=== PATIENT | male | born 1955 | race Hispanic/Latino ===

== ENCOUNTER 2018-07-21 07:10 | Inpatient (IN) | payer MEDICAID ==
--- NOTE | 2018-07-21 07:31 | ED PDOC ---
Arrival/HPI - General Historian: Patient - History of Present Illness Time/Duration: 1 week Symptom Onset: Gradual Symptom Course: Worsening Quality: Other (swelling/sob) - General Chief Complaint: Male Genitourinary Time Seen by Provider: 07/21/18 07:12 - History of Present Illness Narrative History of Present Illness (Text): 07/21/18 07:29 Patient is a 62 year old male with a past medical history that includes CHF and afib (supposed to be on Eliquis) presenting to the emergency room with a complaint of worsening shortness of breath, b/l leg swelling and scrotal swelling for 1 week. Patient is a poor historian and does not know much about his medical history. He reports being hospitalized for similar symptoms twice this year, January and May. During his May hospitalization he had a cardiac device implanted (believed to AICD). He states he has been taking his medication but his symptoms are still worsening. He noticed his feet started to swell last week. The swelling has increased up his legs and now includes his scrotum. He decided to come to the hospital after he notice his breathing we as becoming more difficulty. He has been feeling more fatigued lately, even though he reports sleeping at least 8 hours every night. He denies orthopnea, stating that he sleeps sitting up on benches because he is homeless. He has no other complaints at this time. Denies fevers, chills, nausea, vomiting, diarrhea, constipation, chest pain, abdominal pain, palpitations, lightheadedness, dizziness, numbness or tingling. Medical history obtained from phone call with [facility]. 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 Discharged from [facility] on May - CHF and Cellulitis reported EF ~ 20% 07/21/18 07:58 (Konrad Lennon) Past Medical History - Provider Review Nursing Documentation Reviewed: Yes - Infectious Disease Hx of Infectious Diseases: None Family/Social History - Physician Review Nursing Documentation Reviewed: Yes Family/Social History: Unknown Family HX Smoking Status: Never Smoked Hx Alcohol Use: No Hx Substance Use: No Allergies/Home Meds Allergies/Adverse Reactions: Allergies No Known Allergies Allergy (Verified 07/21/18 07:12) Review of Systems - Physician Review All systems were reviewed & negative as marked: Yes - Review of Systems Constitutional: absent: Fatigue, Fevers Eyes: Normal. absent: Vision Changes ENT: Normal. absent: Sore Throat Respiratory: SOB. absent: Cough, Sputum, Wheezing Cardiovascular: MAGAÑA. absent: Chest Pain, Palpitations, Calf Pain Gastrointestinal: Normal. absent: Abdominal Pain, Constipation, Diarrhea, Nausea, Vomiting Genitourinary Male: Normal, Frequency (on lasix). absent: Dysuria, Hematuria Musculoskeletal: Normal Skin: Normal. absent: Rash Neurological: Normal. absent: Headache, Dizziness Endocrine: Normal. absent: Diaphoresis Hemo/Lymphatic: Normal Psychiatric: Normal. absent: Anxiety Physical Exam Vital Signs Reviewed: Yes Temperature: Afebrile Blood Pressure: Normal Pulse: Tachycardic Respiratory Rate: Normal Appearance: Positive for: Non-Toxic, Comfortable, Ill-Appearing (chronically ill appearing), Unkept, Other (obese ) Pain Distress: None Mental Status: Positive for: Alert and Oriented X 3 - Systems Exam Head: Present: Atraumatic, Other (Large cyst on side of left side) Extroacular Muscles: Present: EOMI Conjunctiva: Present: Normal Mouth: Present: Moist Mucous Membranes Nose (External): Present: Atraumatic Nose (Internal): Present: Normal Inspection, No Active Bleeding, Moist Neck: Present: Normal Range of Motion, JVD. No: Meningeal Signs, MIDLINE TENDERNESS, Lymphadenopathy Respiratory/Chest: Present: Clear to Auscultation, Good Air Exchange. No: Respiratory Distress, Accessory Muscle Use, Wheezes (mild), Decreased Breath Sounds, Rales, Retracting, Rhonchi, Tachypneic Cardiovascular: Present: Normal S1, S2. No: Regular Rate and Rhythm ( irregularly irregular ), Murmurs Abdomen: No: Tenderness, Distention, Peritoneal Signs, Rebound, Guarding, McBurney's Point Tender, Rovsing's Sign Present Genitourinary Male: Present: Penile Swelling, Other (Scrotal swelling ). No: Normal External Genitalia, Erythema, Testicle Swelling Upper Extremity: Present: Normal Inspection, NORMAL PULSES. No: Cyanosis, Edema Lower Extremity: Present: Edema (3+ pitting edema b/l ), Erythema (chornic cellulitis on right lower extremity ), Neurovascularly Intact, Capillary Refill < 2 s. No: Normal Inspection, CALF TENDERNESS, Tenderness Neurological: Present: GCS=15, Speech Normal, Motor Func Grossly Intact Skin: Present: Warm, Dry, Normal Color. No: Rashes Lymphatic: No: Cervical Adenopathy Psychiatric: Present: Alert, Oriented x 3, Normal Insight, Normal Concentration Vital Signs Temp Pulse Resp BP Pulse Ox 07/21/18 10:05 118/83 07/21/18 09:24 88 24 123/80 07/21/18 08:32 93 H 133/84 07/21/18 08:01 116/89 07/21/18 07:17 97.9 F 111 H 18 136/74 95 07/21/18 07:13 97.9 F 111 H 18 95 Medical Decision Making - Lab Interpretations I have reviewed the lab results: Yes Interpretation: Abnormal lab values - RAD Interpretation J2Ee Developer: ED Physician - EKG Interpretation Interpreted by ED Physician: Yes Type: 12 lead EKG Comparison: No previous EKG avail. ED Course and Treatment: 07/21/18 08:03 Patient is a 62 year old male with a past medical history of CHF, who clinically appears fluid overloaded. Appears to be in acute on chronic CHF exacerbation Labs EKG CXR Lasix 40mg IVP Dr. Jin called and obtained past medical history from [facility] emergency department. 07/21/18 08:36 CXR shows RLL infiltrate and enlarged heart. Tx with Rocephin and Azithro. No leukocytosis, elevated pro-BNP Dr. Jin called and discussed case with Dr. Lombardi, who accepted patient to Hospitalist service, for full inpatient admission to telemetry. (Konrad Lennon) 07/21/18 08:31 62 yo male with leg swelling, scrotal swelling and sob r/o CHF exacerbation In agreement with resident note, which includes further HPI details. Patient was seen and evaluated with resident, came up with plan and treatment together. Lungs: expiratory wheezing; no crackles. no tachypnea. Legs: +3 pitting edema Scotal edema EKG reviewed. Afib and documented by resident. CXR with Right infiltrate. Enlarged heart. Will tx with Abx. Lasix IV. Discussed case with Dr. Lombardi who will place the patient on telemetry obs. (Erik Jin) - Lab Interpretations Lab Results: 07/21/18 07:50 07/21/18 07:50 Lab Results 07/21/18 09:00: NT-Pro-B Natriuret Pep 6420 H 07/21/18 07:50: PT 17.3 H, INR 1.49, APTT 30.5 07/21/18 07:50: WBC 7.4, RBC 5.29, Hgb 14.9, Hct 45.9, MCV 86.8, MCH 28.2, MCHC 32.5, RDW 17.1 H, Plt Count 185, MPV 10.0, Gran % 74.2 H, Lymph % (Auto) 13.3 L , Simpson % (Auto) 11.2 H, Eos % (Auto) 1.0 L, Baso % (Auto) 0.3, Gran # 5.46, Lymph # (Auto) 1.0 L, Simpson # (Auto) 0.8 H, Eos # (Auto) 0.1, Baso # (Auto) 0.02 07/21/18 07:50: Sodium 140, Potassium 3.7, Chloride 107, Carbon Dioxide 23, Anion Gap 13, BUN 27 H, Creatinine 0.9, Est GFR ( Amer) > 60, Est GFR ( Non-Af Amer) > 60, Random Glucose 128 H, Calcium 8.7, Magnesium 1.8, Total Bilirubin 2.6 H, AST 39, ALT 35, Alkaline Phosphatase 199 H, Troponin I 0.03, NT -Pro-B Natriuret Pep 6470 H, Total Protein 6.6, Albumin 3.2, Globulin 3.4, Albumin/Globulin Ratio 1.0 L - RAD Interpretation Narrative RAD Interpretations (Text): 07/21/18 08:08 CXR - RLL infiltrate seen, no pleural effusions noted. (Konrad Lennon) Radiology Orders: 07/21/18 07:37 CHEST PORTABLE [RAD] Stat - EKG Interpretation EKG Interpretation (Text): 07/21/18 08:08 EKG - afib @ 92bpms, left axis deviation, Q waves in leads V2-V4 - no previous EKG for comparison. Per hx obtained by Dr. Jin on phone call with [facility], patient has a known history of afib. (Konrad Lennon) - Medication Orders Current Medication Orders: Furosemide (Lasix) 40 mg IVP Q12 KRISTOPHER Last Admin: 07/21/18 10:05 Dose: 40 mg MAR Blood Pressure Document 07/21/18 10:05 (Rec: 07/21/18 10:06 [id number] Blood Pressure Blood Pressure (100/60-150/90) 118/83 IVP Administration Document 07/21/18 10:05 (Rec: 07/21/18 10:06 [id number]) Charges for Administration # of IVP Administrations 1 Heparin Sodium/Sodium Chloride (Heparin 91769 Units/250ml 1/2 Normal Saline) 25 ,000 units in 250 mls @ 17.064 mls/hr IV .[id number] PRN; Protocol; 18 UNITS/KG/HR PRN Reason: ADJUST RATE PER PROTOCOL Pantoprazole Sodium (Protonix Inj) 40 mg IVP DAILY KRISTOPHER Discontinued Medications Furosemide (Lasix) 40 mg IVP STAT STA Stop: 07/21/18 07:40 Last Admin: 07/21/18 08:01 Dose: 40 mg MAR Blood Pressure Document 07/21/18 08:01 (Rec: 07/21/18 08:01 [id number]) Blood Pressure Blood Pressure (100/60-150/90) 116/89 IVP Administration Document 07/21/18 08:01 (Rec: 07/21/18 08:01 [facility] [id number]) Charges for Administration # of IVP Administrations 1 Heparin Sodium (Porcine) (Heparin) 4,000 units IV ONCE ONE PRN Reason: Protocol Stop: 07/21/18 09:28 Ceftriaxone Sodium (Rocephin 1 Gram Ivpb) 1 gm in 100 mls @ 100 mls/hr IVPB STAT STA PRN Reason: Protocol Stop: 07/21/18 09:30 Last Admin: 07/21/18 10:07 Dose: 100 mls/hr eMAR Start Stop Document 07/21/18 10:07 (Rec: 07/21/18 10:07 [facility] [id number]) Intravenous Solution Start Date 07/21/18 Start Time 10:07 Azithromycin (Zithromax 500mg In Ns) 500 mg in 250 mls @ 167 mls/hr IVPB STAT STA PRN Reason: Protocol Stop: 07/21/18 10:00 Disposition/Present on Arrival - Present on Arrival Any Indicators Present on Arrival: No History of DVT/PE: No History of Uncontrolled Diabetes: No Urinary Catheter: No History of Decub. Ulcer: No History Surgical Site Infection Following: None - Disposition Have Diagnosis and Disposition been Completed?: Yes Disposition Time: 08:30 Patient Plan: Admission, Telemetry - Disposition Diagnosis: Acute exacerbation of congestive heart failure Disposition: HOSPITALIZED Patient Problems: Current Active Problems Problem Status Onset Acute exacerbation of congestive heart failure Acute Condition: GUARDED
[2018-07-21 08:06] LABS: BASO # 0.02 K/mm3 (0.0-2.0); BASO % 0.3 % (0.0-3.0); EOS # 0.1 (0.0-0.7); GRAN # 5.46 (1.4-6.5); GRAN % 74.2 % (50.0-68.0); HEMOGLOBIN 14.9 g/dL (14.0-18.0); LYMPH % 13.3 % (22.0-35.0); MEAN CELL VOLUME 86.8 fl (80.0-105.0); MEAN CORPUSCULAR HEMOGLOBIN 28.2 pg (25.0-35.0); MEAN CORPUSCULAR HGB CONC 32.5 g/dl (31.0-37.0); MONO # 0.8 (0.1-0.6); MONO % 11.2 % (1.0-6.0); RBC 5.29 10^6/uL (3.5-6.1); RED CELL DISTRIBUTION WIDTH 17.1 % (11.5-14.5); WHITE BLOOD COUNT 7.4 10^3/ul (4.5-11.0)
[2018-07-21 08:17] LABS: ALBUMIN 3.2 g/dL (3.0-4.8); ALT/SGPT 35 U/L (7-56); AST/SGOT 39 U/L (17-59); BLOOD UREA NITROGEN 27 mg/dL (7-21); CALCIUM 8.7 mg/dL (8.4-10.5); GFR NON-AFRICAN AMERICAN > 60
[2018-07-21 08:27] LABS: B-TYPE NATRIURETIC PEPTIDE 6470 pg/mL (0-450); INR 1.49; PARTIAL THROMBOPLASTIN TIME 30.5 Seconds (25.1-36.5); PROTHROMBIN TIME 17.3 SECONDS (9.4-12.5); TROPONIN I 0.03 ng/mL
[2018-07-21] MEDS ORDERED: Azithromycin 500MG/NS 250ml 500 MG/250 ML BAG IVPB STA (08:31)
[2018-07-21] MEDS ORDERED: cefTRIAXone 1 gm 1 GM/100 ML BAG IVPB STA (08:31)
[2018-07-21] MEDS ORDERED: Heparin25000 units/250ml 1/2NS 25,000 UNITS/250 ML BAG IV PRN (09:27)
--- NOTE | 2018-07-21 09:30 | RAD ---
Date of service: 07/21/2018 HISTORY: chf COMPARISON: No prior. FINDINGS: LUNGS: There is a right-sided perihilar infiltrate suspicious for pneumonia. There is also a component of vascular congestion PLEURA: No significant pleural effusion identified, no pneumothorax apparent. CARDIOVASCULAR: Moderate cardiomegaly OSSEOUS STRUCTURES: No significant abnormalities. VISUALIZED UPPER ABDOMEN: Normal. OTHER FINDINGS: None. IMPRESSION: There is a right-sided perihilar infiltrate suspicious for pneumonia. There is also a component of vascular congestion
[2018-07-21 11:36] VITALS: BMI 40.8
[2018-07-21] MEDS ORDERED: AMPicillin/Sulbactam 1.5gm 1 GM/100 ML BAG IVPB ONE (11:43)
[2018-07-21] MEDS ORDERED: Vancomycin 1gm in NS 250ml 1 GM/250 ML BAG IVPB SCH (11:45)
--- NOTE | 2018-07-21 13:51 | CARD ---
APPROVED REPORT Date of service: 07/21/2018 EKG Measurement Heart [id number] <Conclusion> Atrial fibrillation Right superior axis deviation Anteroseptal infarct, age undetermined Abnormal ECG
[2018-07-21] MEDS ORDERED: Pneumococcal 23-Valent Vaccine IM ONE (14:34)
--- NOTE | 2018-07-21 16:33 | CP.PCM.HP ---
<VelasquezShawn - Last Filed: 07/21/18 16:39> History of Present Illness - History of Present Illness History of Present Illness: Medicine H&P: Velasquez, PGY - 2, IM Resident Chief Complaint: Shortness of breath HPI: 62 year old male with pertinent medical history of A-Fib on Eliquis and Systolic HF presents with 4 day history of shortness of breath. Patient was recently [place] [facility] [place] and generally goes there for medical treatment. He also complains of scrotal swelling as well as bilateral LE swelling. He denies any chest pain or fatigue, states that at his baseline he is able to walk around several blocks. He is homeless. Does not recall having a recent ECHO, but per [facility] [place] has been seen there multiple times. He states that he had an AICD placed in May but does not know why. Denies any urinary symptoms or any calf pain in bilateral LE. Surgical Hx: AICD placement Medical Hx: CHF, Systolic CHF Allergies: NKDA Social Hx: Never smoker, No illicits; Quit drinking 25 years ago Home Meds: Reviewed, as per MAR Family Hx: Patient denies PMD: Patient does not have one Present on Admission - Present on Admission Any Indicators Present on Admission: No Past Patient History - Infectious Disease Hx of Infectious Diseases: None - Past Social History Smoking Status: Never Smoked - CARDIAC Hx Cardiac Disorders: Yes Hx Cardia Arrhythmia: Yes (a fib) Hx Congestive Heart Failure: Yes Hx Hypercholesterolemia: Yes Hx Hypertension: Yes Hx Internal Defibrillator: Yes (05/20/18 at [facility] [place], pt states defibrillator) Hx Peripheral Edema: Yes (ble +3 pitting) Other/Comment: pt obtained meds from [facility] pharmacy [phone] january 2018 upon discharge from hospital for chf. Pt stated" I got 30 day supplies, and ran out. " Was discharged on 05/21/18 after have a "defibrillator" implanted at [facility], [facility] denies giving him any home meds at that time. 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", chronic cellulitis ble redness to skin, skin discolorations, multiple open draining and closed wounds +3 pitting edema legs and feet, long thick hard toenails, poor hygeine foul smell and dirty finger and toenails, small 0.5 round cyst left uppr back flesh colored, left chest wall staple dry and intact for defibrillator insertion in may 2018, redness to lower abd, redness and swelling to penis and scrotum, redness travels around to buttocks, small 0.5cm round growth to right eyelid - MUSCULOSKELETAL/RHEUMATOLOGICAL Hx Musculoskeletal Disorders: No Hx Falls: No - GASTROINTESTINAL Hx Gastrointestinal Disorders: Yes (obese) Hx Gastroesophageal Reflux: Yes - GENITOURINARY/GYNECOLOGICAL Hx Genitourinary Disorders: No - PSYCHIATRIC Hx Psychophysiologic Disorder: No Hx Substance Use: No - SURGICAL HISTORY Hx Surgeries: Yes Hx Cardiac Catheterization: Yes (pt thinks he had c cath 01/2018 [facility]) Other/Comment: defibrillator implantion 05/20/18 [facility], questionable cardiac cath at [facility] 01/2018 as stated by pt who is uncertain Meds Allergies/Adverse Reactions: Allergies Allergy/AdvReac Type Severity Reaction Status Date / Time No Known Allergies Allergy Verified 07/21/18 07:12 Physical Exam - Constitutional Appears: Non-toxic, Unkempt - Head Exam Head Exam: ATRAUMATIC, NORMAL INSPECTION, NORMOCEPHALIC Additional comments: Patient has large cyst on left side of his head; states that it has been worked up in the past, and that it is non-malignant - Eye Exam Eye Exam: EOMI, Normal appearance, PERRL Pupil Exam: NORMAL ACCOMODATION, PERRL - ENT Exam ENT Exam: Mucous Membranes Moist, Normal Exam - Neck Exam Neck exam: Positive for: Normal Inspection - Respiratory Exam Respiratory Exam: Wheezes, NORMAL BREATHING PATTERN Additional comments: wheezes in bilateral anterior lung sanches - Cardiovascular Exam Cardiovascular Exam: REGULAR RHYTHM - GI/Abdominal Exam GI & Abdominal Exam: Normal Bowel Sounds, Soft. absent: Tenderness - Extremities Exam Extremities exam: Positive for: pedal edema Additional comments: 4+ pitting edema on bilateral LE Patient has pustular discharge from different places along his bilateral LE - Back Exam Back exam: NORMAL INSPECTION - Neurological Exam Neurological exam: Alert, CN II-XII Intact, Normal Gait, Oriented x3, Reflexes Normal - Psychiatric Exam Psychiatric exam: Normal Affect, Normal Mood - Skin Skin Exam: Dry, Intact, Normal Color, Warm Results - Vital Signs Recent Vital Signs: Last Vital Signs Temp 97.9 F 07/21/18 13:24 Pulse 88 07/21/18 13:24 Resp 24 07/21/18 13:24 BP 123/80 07/21/18 13:24 Pulse Ox 96 07/21/18 12:32 - Labs Result Diagrams: 07/21/18 07:50 07/21/18 07:50 Assessment & Plan - Assessment and Plan (Free Text) Assessment: 62 year old male presenting for shortness of breath of 4 day duration. Patient has had several episodes like this in the past, and has been evaluated at [facility]. Upon admission, BNP is elevated even with age adjustment (>6200), and CXR reveals bilateral patchy opacities reflective of fluid. Patient also has clinical signs of CHF exacerbation, including 4+ bilateral pitting edema. Initial trope was indeterminate, as was the second. No baseline ECHO is on record here at [facility]. Of note patient also has bilateral LE pustular discharge from multiple points but is afebrile and without leukocytosis. Patient's EKG reveals atrial fibrillation with possible previous infarct. Given this information, patient most likely is having CHF exacerbation, possibly 2/2 atrial fibrillation or bilateral LE cellulitis. There is no clinical suspicion right now for PE or DVT, as patient is oxygenating well on 2L NC. Even though patient is short of breath and with tachycardia on presentation, there is an alternative reason for these symptoms. Note: CHADSVASc score is 2 Plan Shortness of breath, likely 2/2 CHF Exacerbation - Admit to tele - Lasix 40 BID, 2L NC PRN - D/C Azithro and Rocephin given in ED - Daily weights and Strict I/O's - Continue with home CHF medications - Coreg, ASA, Lipitor, Plavix - BNP ordered for 07/24 to track progress of treatment, as per TIME-CHF trial Possible bilateral LE Cellulitis - Wound culture sent - Luis Daniel for now Hx A Fib - Continue home Eliquis, Coreg - Admit to telemetry GI/DVT PPX - Protonix/Eliquis <Ashia Mendez - Last Filed: 07/25/18 18:52> Results - Vital Signs Recent Vital Signs: Last Vital Signs Temp 97.2 F L 07/25/18 12:00 Pulse 60 07/25/18 18:00 Resp 17 07/25/18 12:00 BP 116/77 07/25/18 17:23 Pulse Ox 94 L 07/25/18 06:00 - Labs Result Diagrams: 07/25/18 07:00 07/25/18 07:00 Labs: Laboratory Results - last 24 hr 07/25/18 07/25/18 07:00 07:00 WBC 5.0 RBC 5.13 Hgb 14.2 Hct 45.0 MCV 87.7 MCH 27.7 MCHC 31.6 RDW 16.7 H Plt Count 166 MPV 10.0 Gran % 60.1 Lymph % (Auto) 25.5 Maverick % (Auto) 10.8 H Eos % (Auto) 3.0 Baso % (Auto) 0.6 Gran # 3.02 Lymph # (Auto) 1.3 Maverick # (Auto) 0.5 Eos # (Auto) 0.2 Baso # (Auto) 0.03 Sodium 138 Potassium 4.2 Chloride 97 L Carbon Dioxide 33 Anion Gap 12 BUN 18 Creatinine 0.9 Est GFR ( Amer) > 60 Est GFR (Non-Af Amer) > 60 Random Glucose 80 Calcium 8.7 Phosphorus 3.4 Magnesium 2.0 Total Bilirubin 2.0 H AST 45 ALT 33 Alkaline Phosphatase 210 H Total Protein 6.1 Albumin 3.0 Globulin 3.1 Albumin/Globulin Ratio 1.0 L Attending/Attestation - Attestation I have personally seen and examined this patient.: Yes I have fully participated in the care of the patient.: Yes I have reviewed all pertinent clinical information: Yes Notes (Text): 07/25/18 18:50 Medical record note made by the resident after discussion with my direction and input after the patient was personally seen and examined by me. I have reviewed the chart and agree that the record accurately reflects by personal performance of the history, physical exam, data review, and medical decision-making, in the course for the patient. I have also personally directed the plan of care. 62 year old male with PMH of CAD s/p stents ? , CHF with systolic dysfunction EF 19%,SP AICD,, A-Fib on Eliquis , non compliance with medication was admitted with acute on chronic CHF exacerbation,(worsening dyspnea, leg swelling and scrotal swelling), We will start patient on IV lasix, we will follow up BUN/Creatinin and electrolyte. We will get 2D Echo,We will also get Cardiology consult.
--- NOTE | 2018-07-21 17:10 | CARD ---
APPROVED REPORT Date of service: 07/21/2018 EXAM: Two-dimensional and M-mode echocardiogram with Doppler and color Doppler. INDICATION CHF WITH LOW EF 2D DIMENSIONS RVDd4.6 (2.9-3.5cm)Left Atrium (2D)6.3 (1.6-4.0cm) IVSd1.2 (0.7-1.1cm)LVDd6.3 (3.9-5.9cm) PWd1.5 (0.7-1.1cm)LVDs5.7 (2.5-4.0cm) FS (%) 8.2 %LVEF (%)17.7 (>50%) M-Mode DIMENSIONS Aortic Root3.70 (2.2-3.7cm)Aortic Cusp Exc.2.30 (1.5-2.0cm) Aortic Valve AoV Peak Nohfsuwk407.0cm/Sandra Peak GR.6mmHg Mitral Valve E/A ratio0.0 TDI E/Lateral E'0.0E/Medial E'0.0 Pulmonary Valve PV Peak Oruuxkbf99.8cm/sPV Peak Grad.1mmHg Tricuspid Valve TR Peak [id number]/sRAP [id number] Peak Gr.42mmHg [id number] LEFT VENTRICLE The Left Ventricle is moderately dilated. There is normal left ventricular wall thickness. The systolic function is severely impaired. There is global hypokinesis of the left ventricle. No left ventricle thrombus noted on this study. RIGHT VENTRICLE The right ventricle is moderately dilated. There is normal right ventricular wall thickness. RV Systolic function is severely reduced. There is a pacemaker lead in the right ventricle. ATRIA The left atrium is severely dilated. The right atrium is severely dilated. AORTIC VALVE The aortic valve is mildly thickened. There is trace aortic regurgitation. There is no aortic valvular stenosis. MITRAL VALVE The mitral valve is mildly thickened. Mitral regurgitation is moderate. There is no mitral valve stenosis. TRICUSPID VALVE The tricuspid valve is normal in structure. There is moderate to severe tricuspid regurgitation. There is moderate pulmonary hypertension. PULMONIC VALVE The pulmonary valve is normal in structure. There is trace pulmonic valvular regurgitation. GREAT VESSELS The IVC is dilated. PERICARDIAL EFFUSION There is a trace circumferential pericardial effusion. <Conclusion> The Left Ventricle is moderately dilated. There is normal left ventricular wall thickness. The systolic function is severely impaired. There is global hypokinesis of the left ventricle. No left ventricle thrombus noted on this study. The right ventricle is moderately dilated. The right ventricle is moderately dilated. RV Systolic function is severely reduced. Mitral regurgitation is moderate. There is moderate to severe tricuspid regurgitation. There is moderate pulmonary hypertension.
[2018-07-22] MEDS: Pantoprazole 40 mg EC Tab PO SCH (06:32)
[2018-07-22 07:23] LABS: BASO # 0.02 K/mm3 (0.0-2.0); BASO % 0.4 % (0.0-3.0); EOS # 0.2 (0.0-0.7); EOS % 2.7 % (1.5-5.0); GRAN # 3.77 (1.4-6.5); GRAN % 67.7 % (50.0-68.0); HEMOGLOBIN 13.6 g/dL (14.0-18.0); LYMPH # 0.9 (1.2-3.4); LYMPH % 15.6 % (22.0-35.0); MEAN CELL VOLUME 87.9 fl (80.0-105.0); MEAN CORPUSCULAR HEMOGLOBIN 27.5 pg (25.0-35.0); MEAN CORPUSCULAR HGB CONC 31.3 g/dl (31.0-37.0); MEAN PLATELET VOLUME 10.2 fl (7.0-11.0); MONO # 0.8 (0.1-0.6); MONO % 13.6 % (1.0-6.0); RBC 4.95 10^6/uL (3.5-6.1); RED CELL DISTRIBUTION WIDTH 17.1 % (11.5-14.5); WHITE BLOOD COUNT 5.6 10^3/ul (4.5-11.0)
[2018-07-22 07:41] LABS: ALB/GLOB RATIO 0.9 (1.1-1.8); ALBUMIN 2.6 g/dL (3.0-4.8); ALT/SGPT 32 U/L (7-56); AST/SGOT 34 U/L (17-59); BLOOD UREA NITROGEN 23 mg/dL (7-21); CALCIUM 8.3 mg/dL (8.4-10.5); GFR NON-AFRICAN AMERICAN > 60; HDL CHOLESTEROL 23 mg/dL (29-60)
[2018-07-22 07:50] LABS: LDL CHOLESTEROL 66 mg/dL (0-129)
[2018-07-22] MEDS ORDERED: Potassium Chloride 40 mEq/30 ml LIQ UD PO STA (09:33)
[2018-07-22] MEDS ORDERED: Magnesium Sulfate 2 gm/50 ml 2 GM/50 ML BAG IVPB ONE (09:38)
[2018-07-22] MEDS ORDERED: Albuterol-Ipratrop 3 mg / 0.5 (3 ml) UD IH STA (10:23)
--- NOTE | 2018-07-22 13:48 | US ---
Date of service: 07/21/2018 HISTORY: Scrotal swelling TECHNIQUE: Realtime sonography through the scrotum with color and doppler flow. COMPARISON: None Available. FINDINGS: RIGHT TESTICLE: Measures 3.7 x 3.2 x 2.14 cm. Normal echotexture and flow. RIGHT EPIDIDYMIS: Epididymal head measures 1.24 x 0.53 x 0.66 cm. 0.2 x 0.1 x 0.2 centimeters cyst seen at the right epididymal head. LEFT TESTICLE: Measures 3.6 x 2.4 cm. Normal echotexture and flow. LEFT EPIDIDYMIS: Epididymal head measures 1.9 x 1 x 1.2 cm. Grossly unremarkable appearance with normal flow. HYDROCELE: Small bilateral hydroceles noted. VARICOCELE: None. OTHER FINDINGS: None. IMPRESSION: No evidence of testicular torsion. Diffuse skin and soft tissue edema and thickening noted. Small bilateral hydroceles.
--- NOTE | 2018-07-22 16:20 | CP.PCM.PN ---
Subjective - Date & Time of Evaluation Date of Evaluation: 07/22/18 Time of Evaluation: 09:08 - Subjective Subjective: Jon Beatty DO PGY-1, Internal Medicine Resident. Hospitalist Progress Note Patient seen and examined at bedside. Patient is resting in bed. No acute events overnight. Tolerating his diet with regular bowel movements. Patient reported improving SOB and leg swelling. Patient denied CP, palpitations, headache, fever. Objective - Vital Signs/Intake and Output Vital Signs (last 24 hours): Temp Pulse Resp BP Pulse Ox 98.6 F 72 18 100/65 97 07/22/18 12:00 07/22/18 12:00 07/22/18 12:00 07/22/18 12:00 07/22/18 06:00 Intake and Output: 07/22/18 07/22/18 06:59 18:59 Intake Total 360 Output Total 4350 Balance -3990 - Medications Medications: Current Medications Apixaban (Eliquis) 5 mg PO BID [facility] PRN Reason: Protocol Last Admin: 07/22/18 10:54 Dose: 5 mg Aspirin (Ecotrin) 81 mg PO DAILY [facility] Last Admin: 07/22/18 10:54 Dose: 81 mg Atorvastatin Calcium (Lipitor) 40 mg PO HS [facility] Last Admin: 07/21/18 21:27 Dose: 40 mg Carvedilol (Coreg) 12.5 mg PO BID [facility] Last Admin: 07/22/18 11:22 Dose: 12.5 mg Cephalexin Monohydrate (Keflex) 500 mg PO Q6 [facility] PRN Reason: Protocol Last Admin: 07/22/18 11:30 Dose: 500 mg Clopidogrel Bisulfate (Plavix) 75 mg PO DAILY [facility] Last Admin: 07/22/18 10:53 Dose: 75 mg Furosemide (Lasix) 40 mg IVP Q12 [facility] Last Admin: 07/22/18 11:23 Dose: 40 mg Lisinopril (Zestril) 5 mg PO DAILY [facility] Last Admin: 07/22/18 11:23 Dose: 5 mg Pantoprazole Sodium (Protonix Ec Tab) 40 mg PO 0600 [facility] Last Admin: 07/22/18 06:32 Dose: 40 mg - Labs Labs: 07/22/18 06:45 07/22/18 06:45 PT 17.3 SECONDS (9.4-12.5) H 07/21/18 07:50 INR 1.49 07/21/18 07:50 APTT 30.5 Seconds (25.1-36.5) 07/21/18 07:50 - Constitutional Appears: Well, No Acute Distress - Head Exam Head Exam: ATRAUMATIC, NORMOCEPHALIC Additional comments: mass anterior to left ear. soft, fluid filled, no signs of infection, no erythema, no drainage - Eye Exam Eye Exam: EOMI, Normal appearance, PERRL Pupil Exam: NORMAL ACCOMODATION, PERRL - ENT Exam ENT Exam: Mucous Membranes Moist, Normal Exam - Neck Exam Neck Exam: Full ROM, Normal Inspection. absent: Lymphadenopathy - Respiratory Exam Respiratory Exam: Clear to Ausculation Bilateral, NORMAL BREATHING PATTERN - Cardiovascular Exam Cardiovascular Exam: +S1, +S2, Murmur - GI/Abdominal Exam GI & Abdominal Exam: Soft, Normal Bowel Sounds. absent: Guarding, Tenderness, Organomegaly, Pulsatile Mass Additional comments: distended abdomen - Exam Additional comments: enlarged scrotum - Extremities Exam Extremities Exam: Full ROM, Pedal Edema. absent: Calf Tenderness Additional comments: b/l 3+ LL pitting edema - Back Exam Back Exam: NORMAL INSPECTION - Neurological Exam Neurological Exam: Alert, Awake, CN II-XII Intact, Oriented x3 - Psychiatric Exam Psychiatric exam: Normal Affect, Normal Mood - Skin Additional comments: b/l LE skin changes. with pustules and dried pus. erythema, dark discoloration Assessment and Plan - Assessment and Plan (Free Text) Assessment: 62 year old male with PMH of CAD s/p stents palced, CABG, A-Fib on Eliquis and Systolic CHF presented to ED for SOB and progressive LE edema x4 days. Admitted to telemetry for observation and CHF exacerbation Plan: Shortness of breath -likely due to CHF exacerbation -EKG: Afib, Rsuperior axis deviation -Troponin negative x3 -CXR: b/l infilterate/fluid -Echo: EF 17.7%, PHTN, global LV hypokinesis, severely reduced RV systolic function -admit to tele -lasix 40 BID -continue home meds coreg, asa, lipitor, plavix -BNP 6470 -continue O2 NC 2L prn -daily weight -fluid restriction, I/O -Testicular U/S: no torsion, soft tissue swelling with hydrocele B/L lower extremities wounds -likely due to chronic venous stasis -wound culture sent -started keflex -wound care Hx A Fib -continue home Abhay Arredondo -admit to telemetry Left facial cystic mass -chronic, for years -no signs of infection, drainage, erythema -followed up at [facility] [place] for elective resection -no treatment needed Prophylaxis GI ppx: Protonix DVTppx: Eliquis Heart healthy diet Case reviewed and plan discussed with Dr Mendez
--- NOTE | 2018-07-23 02:21 | CON ---
DATE: 07/22/2018 REQUESTING PHYSICIAN: MD MANJU Hector FOR CONSULTATION: Decompensated congestive heart failure. HISTORY: This is a 62-year-old man with apparent history of congestive cardiomyopathy, who had previously been admitted to [facility], who presented with worsening dyspnea. Full details of his prior workup are unavailable when seen. He apparently has chronic atrial fibrillation and severe LV systolic dysfunction. An ICD was placed earlier this year at [facility]. He claims compliance with his medication. He states he did undergo cardiac catheterization and was told that he had no blockages in his arteries, although full details of this are unavailable at the present time. He apparently is homeless and was given a 30-day supply of medications in May, after his defibrillator was placed. He has not taken his medication since that time. His past history is notable for problems mentioned above. 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 PAST MEDICAL HISTORY: Notable for the problems mentioned above. SOCIAL HISTORY: He does not smoke. He denies drug use. He quit smoking. He stopped alcohol abuse over 25 years ago. ALLERGIES: NONE. FAMILY HISTORY: Unremarkable for premature heart disease. REVIEW OF SYSTEMS: A 10-point review of systems is notable mainly for the problems mentioned above. PHYSICAL EXAMINATION: GENERAL: He is a somewhat disheveled-appearing middle-aged man. VITAL SIGNS: His blood pressure is 90/60 with pulse of 66, respirations of 14. He is afebrile. HEENT: Normocephalic, atraumatic. Large preauricular mass is present with some area of erythema noted. NECK: Supple. JVD is present. CHEST: Diminished breath sounds at the bases. HEART: PMI displaced laterally with soft tones noted. ABDOMEN: Soft, moderately obese with normoactive bowel sounds. EXTREMITIES: 3+ edema to his buttocks. SKIN: Chronic cellulitic changes noted. PSYCHIATRIC: Somewhat of a flat affect. NEUROLOGIC: No gross motor or sensory deficits appreciable. DIAGNOSTIC DATA: White count 5.6, hemoglobin and hematocrit 13.6 and 43.5 with platelet count 141,000. Potassium 3.1 which has been replaced. BUN and creatinine 23 and 0.9. Bilirubin 2.4. Three sets cardiac enzymes were negative. BNP 6420. Albumin 2.6. TSH 0.91. Chest x-ray reveals a large cardiac silhouette with bilateral congestive changes, perihilar infiltrate on the right cannot be excluded. Electrocardiogram showed atrial fibrillation with possible anteroseptal wall myocardial fraction pattern. Echocardiogram reveals a moderately dilated left ventricle with severely reduced LV systolic function, 4-chamber enlargement, moderate mitral regurgitation, and [id number] tricuspid regurgitation. IMPRESSION: 1. Decompensated congestive heart failure secondary to apparent congestive cardiomyopathy, [id number], probably systolic, likely exacerbated by noncompliance with medications. 2. Rest of problems as noted. RECOMMENDATIONS: IV diuretic therapy should be instituted for now. Beta-harvey and afterload reduction therapy should be continued as blood pressure allows. Eliquis should be continued given his atrial fibrillation. He has also been placed on Ecotrin and Plavix for unclear reasons. If he has no significant coronary artery disease and no prior coronary stents placed, both of these can be discontinued to reduce his risk of hemorrhagic complications with concomitant use of oral anticoagulant therapy. Social situation needs to be addressed and long-term availability of medications will need to be provided as well. The importance of sodium and fluid restriction as well as compliance with his medications will need to be reviewed with him. Attempt should be made to obtain records from [facility] to clarify some of the above issues which have been raised. Thanks for this consultation. I will be happy to follow along as needed. Leonel Sánchez MD
[2018-07-23] MEDS: Pantoprazole 40 mg EC Tab PO SCH (05:42)
--- NOTE | 2018-07-23 06:46 | CP.PCM.PN ---
<Jon Beatty - Last Filed: 07/23/18 12:25> Subjective - Date & Time of Evaluation Date of Evaluation: 07/23/18 Time of Evaluation: 05:56 - Subjective Subjective: Jon Beatty DO PGY-1, Internal Medicine Resident. Hospitalist Progress Note Patient seen and examined at bedside. Patient is resting in bed. No acute events overnight. Tolerating his diet with regular bowel movements. Patient reported improving SOB but his scrotal swelling still the same and he can not walk. Patient denied CP, palpitations, headache, fever. Objective - Vital Signs/Intake and Output Vital Signs (last 24 hours): Temp Pulse Resp BP Pulse Ox 98.2 F 61 18 96/57 L 97 07/23/18 06:00 07/23/18 06:00 07/23/18 06:00 07/23/18 06:00 07/22/18 06:00 Intake and Output: 07/22/18 07/23/18 18:59 06:59 Intake Total 120 Output Total 1700 Balance -1580 - Medications Medications: Current Medications Apixaban (Eliquis) 5 mg PO BID [facility] PRN Reason: Protocol Last Admin: 07/22/18 17:36 Dose: 5 mg Aspirin (Ecotrin) 81 mg PO DAILY [facility] Last Admin: 07/22/18 10:54 Dose: 81 mg Atorvastatin Calcium (Lipitor) 40 mg PO HS [facility] Last Admin: 07/22/18 21:58 Dose: 40 mg Carvedilol (Coreg) 12.5 mg PO BID [facility] Last Admin: 07/22/18 17:37 Dose: 12.5 mg Cephalexin Monohydrate (Keflex) 500 mg PO Q6 [facility] PRN Reason: Protocol Last Admin: 07/23/18 05:42 Dose: 500 mg Clopidogrel Bisulfate (Plavix) 75 mg PO DAILY [facility] Last Admin: 07/22/18 10:53 Dose: 75 mg Furosemide (Lasix) 40 mg IVP Q12 [facility] Last Admin: 07/22/18 21:52 Dose: 40 mg Lisinopril (Zestril) 5 mg PO DAILY [facility] Last Admin: 07/22/18 11:23 Dose: 5 mg Pantoprazole Sodium (Protonix Ec Tab) 40 mg PO 0600 [facility] Last Admin: 07/23/18 05:42 Dose: 40 mg Spironolactone (Aldactone) 25 mg PO BID [facility] Last Admin: 07/22/18 18:25 Dose: 25 mg - Labs Labs: 07/22/18 06:45 07/22/18 06:45 PT 17.3 SECONDS (9.4-12.5) H 07/21/18 07:50 INR 1.49 07/21/18 07:50 APTT 30.5 Seconds (25.1-36.5) 07/21/18 07:50 - Additional Findings Additional findings: - Constitutional Appears: Well, No Acute Distress - Head Exam Head Exam: ATRAUMATIC, NORMOCEPHALIC Additional comments: mass anterior to left ear. soft, fluid filled, no signs of infection, no erythema, no drainage - Eye Exam Eye Exam: EOMI, Normal appearance, PERRL Pupil Exam: NORMAL ACCOMODATION, PERRL - ENT Exam ENT Exam: Mucous Membranes Moist, Normal Exam - Neck Exam Neck Exam: Full ROM, Normal Inspection. absent: Lymphadenopathy - Respiratory Exam Respiratory Exam: Clear to Ausculation Bilateral, NORMAL BREATHING PATTERN - Cardiovascular Exam Cardiovascular Exam: +S1, +S2, Murmur - GI/Abdominal Exam GI & Abdominal Exam: Soft, Normal Bowel Sounds. absent: Guarding, Tenderness, Organomegaly, Pulsatile Mass Additional comments: distended abdomen - Exam Additional comments: enlarged scrotum - Extremities Exam Extremities Exam: Full ROM, Pedal Edema. absent: Calf Tenderness Additional comments: b/l 3+ LL pitting edema - Back Exam Back Exam: NORMAL INSPECTION - Neurological Exam Neurological Exam: Alert, Awake, CN II-XII Intact, Oriented x3 - Psychiatric Exam Psychiatric exam: Normal Affect, Normal Mood - Skin Additional comments: b/l LE skin changes. with pustules and dried pus. erythema, dark discoloration Assessment and Plan - Assessment and Plan (Free Text) Assessment: 62 year old male with PMH of CAD s/p stents palced, CABG, A-Fib on Eliquis and Systolic CHF presented to ED for SOB and progressive LE edema x4 days. Admitted to telemetry for observation and CHF exacerbation Plan: Shortness of breath -likely due to CHF exacerbation -EKG: Afib, Rsuperior axis deviation -Troponin negative x3 -CXR: b/l infilterate/fluid -Echo: EF 17.7%, PHTN, global LV hypokinesis, severely reduced RV systolic function -admit to tele -lasix 40 BID -Aldactone added -continue home meds coreg, asa, lipitor, plavix -BNP 6470 -continue O2 NC 2L prn -daily weight -fluid restriction, I/O -Testicular U/S: no torsion, soft tissue swelling with hydrocele -fluid intake restriction to 1200 cc -O2 weaned off -Hold asa, plavix as per cardio -Mg, K repleted B/L lower extremities wounds -likely due to chronic venous stasis -wound culture sent -d/c keflex -started augmentin -wound care Hx A Fib -continue home Eliquis, Coreg -admit to telemetry Left facial cystic mass -chronic, for years -no signs of infection, drainage, erythema -followed up at [facility] [place] for elective resection -no treatment needed Prophylaxis GI ppx: Protonix DVTppx: Eliquis OOB Heart healthy diet Case reviewed and plan discussed with Dr Mendez <Ashia Mendez - Last Filed: 07/25/18 18:53> Objective - Vital Signs/Intake and Output Vital Signs (last 24 hours): Temp Pulse Resp BP Pulse Ox 97.2 F L 60 17 116/77 94 L 07/25/18 12:00 07/25/18 18:00 07/25/18 12:00 07/25/18 17:23 07/25/18 06:00 Intake and Output: 07/25/18 07/25/18 06:59 18:59 Intake Total 960 540 Output Total 500 1200 Balance 460 -660 - Medications Medications: Current Medications Amoxicillin/Clavulanate Potassium (Augmentin 875 Mg-125 Mg Tab) 1 tab PO Q12 [facility] PRN Reason: Protocol Last Admin: 07/25/18 09:13 Dose: 1 tab Apixaban (Eliquis) 5 mg PO BID [facility] PRN Reason: Protocol Last Admin: 07/25/18 17:23 Dose: 5 mg Atorvastatin Calcium (Lipitor) 40 mg PO HS [facility] Last Admin: 07/24/18 22:46 Dose: 40 mg Carvedilol (Coreg) 12.5 mg PO BID [facility] Last Admin: 07/25/18 17:23 Dose: 12.5 mg Furosemide (Lasix) 40 mg IVP Q12 [facility] Last Admin: 07/25/18 09:19 Dose: 40 mg Lisinopril (Zestril) 10 mg PO DAILY [facility] Last Admin: 07/25/18 09:18 Dose: 10 mg Magnesium Oxide (Mag-Ox) 400 mg PO BID [facility] Last Admin: 07/25/18 17:23 Dose: 400 mg Pantoprazole Sodium (Protonix Ec Tab) 40 mg PO 0600 [facility] Last Admin: 07/25/18 05:09 Dose: 40 mg Potassium Chloride (Klor-Con 10) 30 meq PO BID [facility] Last Admin: 07/25/18 17:23 Dose: 30 meq Spironolactone (Aldactone) 25 mg PO BID [facility] Last Admin: 07/25/18 17:23 Dose: 25 mg - Labs Labs: 07/25/18 07:00 07/25/18 07:00 PT 17.3 SECONDS (9.4-12.5) H 07/21/18 07:50 INR 1.49 07/21/18 07:50 APTT 30.5 Seconds (25.1-36.5) 07/21/18 07:50 Attending/Attestation - Attestation I have personally seen and examined this patient.: Yes I have fully participated in the care of the patient.: Yes I have reviewed all pertinent clinical information, including history, physical exam and plan: Yes Notes (Text): 07/25/18 18:53 Medical record note made by the resident after discussion with my direction and input after the patient was personally seen and examined by me. I have reviewed the chart and agree that the record accurately reflects by personal performance of the history, physical exam, data review, and medical decision-making, in the course for the patient. I have also personally directed the plan of care.
[2018-07-23 07:23] LABS: BASO # 0.02 K/mm3 (0.0-2.0); BASO % 0.4 % (0.0-3.0); EOS # 0.2 (0.0-0.7); EOS % 4.3 % (1.5-5.0); GRAN # 3.78 (1.4-6.5); GRAN % 68.1 % (50.0-68.0); HEMOGLOBIN 13.5 g/dL (14.0-18.0); LYMPH # 0.8 (1.2-3.4); LYMPH % 14.4 % (22.0-35.0); MEAN CELL VOLUME 87.7 fl (80.0-105.0); MEAN CORPUSCULAR HEMOGLOBIN 27.3 pg (25.0-35.0); MEAN CORPUSCULAR HGB CONC 31.2 g/dl (31.0-37.0); MEAN PLATELET VOLUME 10.4 fl (7.0-11.0); MONO # 0.7 (0.1-0.6); MONO % 12.8 % (1.0-6.0); RBC 4.94 10^6/uL (3.5-6.1); RED CELL DISTRIBUTION WIDTH 16.8 % (11.5-14.5); WHITE BLOOD COUNT 5.6 10^3/ul (4.5-11.0)
[2018-07-23 07:41] LABS: ALB/GLOB RATIO 0.9 (1.1-1.8); ALBUMIN 2.7 g/dL (3.0-4.8); ALT/SGPT 36 U/L (7-56); AST/SGOT 36 U/L (17-59); BLOOD UREA NITROGEN 21 mg/dL (7-21); CALCIUM 8.3 mg/dL (8.4-10.5); GFR NON-AFRICAN AMERICAN > 60
--- NOTE | 2018-07-23 07:50 | CP.PCM.PN ---
Subjective - Date & Time of Evaluation Date of Evaluation: 07/23/18 Time of Evaluation: 07:00 - Subjective Subjective: Stable on 2R. No CP or SOB. V/S noted. AF. 96/60 range PE: Lungs: clear Cor.: irreg., S1S2 Abd.: soft Ext.: + edema Neuro.: alert I/O = 120/1700 recorded Labs noted: K+= 3.1, Mg+= 1.6 Urine C+S + GNR BC X2 NG at 24 hrs. Echo noted: Severe LVD, mod. MR and PH, mod/sev. TR Objective - Vital Signs/Intake and Output Vital Signs (last 24 hours): Temp Pulse Resp BP Pulse Ox 98.2 F 61 18 96/57 L 97 07/23/18 06:00 07/23/18 06:00 07/23/18 06:00 07/23/18 06:00 07/22/18 06:00 Intake and Output: 07/23/18 07/23/18 06:59 18:59 Intake Total 120 Output Total 1700 Balance -1580 - Medications Medications: Current Medications Apixaban (Eliquis) 5 mg PO BID [facility] PRN Reason: Protocol Last Admin: 07/22/18 17:36 Dose: 5 mg Aspirin (Ecotrin) 81 mg PO DAILY [facility] Last Admin: 07/22/18 10:54 Dose: 81 mg Atorvastatin Calcium (Lipitor) 40 mg PO HS [facility] Last Admin: 07/22/18 21:58 Dose: 40 mg Carvedilol (Coreg) 12.5 mg PO BID [facility] Last Admin: 07/22/18 17:37 Dose: 12.5 mg Cephalexin Monohydrate (Keflex) 500 mg PO Q6 [facility] PRN Reason: Protocol Last Admin: 07/23/18 05:42 Dose: 500 mg Clopidogrel Bisulfate (Plavix) 75 mg PO DAILY [facility] Last Admin: 07/22/18 10:53 Dose: 75 mg Furosemide (Lasix) 40 mg IVP Q12 [facility] Last Admin: 07/22/18 21:52 Dose: 40 mg Lisinopril (Zestril) 5 mg PO DAILY [facility] Last Admin: 07/22/18 11:23 Dose: 5 mg Pantoprazole Sodium (Protonix Ec Tab) 40 mg PO 0600 [facility] Last Admin: 07/23/18 05:42 Dose: 40 mg Potassium Chloride (K-Dur 20 Meq Er Tab) 30 meq PO BID [facility] Spironolactone (Aldactone) 25 mg PO BID [facility] Last Admin: 07/22/18 18:25 Dose: 25 mg - Labs Labs: 07/23/18 06:30 07/22/18 06:45 PT 17.3 SECONDS (9.4-12.5) H 07/21/18 07:50 INR 1.49 07/21/18 07:50 APTT 30.5 Seconds (25.1-36.5) 07/21/18 07:50 Assessment and Plan - Assessment and Plan (Free Text) Assessment: CHF CCM with nl cors at cath [facility] ICD AF Smoker Pre-auricular mass Remote ETOH Homeless Plan: Continue diuresis Replace K+, Mg++ Get [facility] records Hold ASA and Plavix until cath data available: D/C if no CAD/stents. OOB to chair as oneal. Monitor: labs, I/O, sats., etc
[2018-07-23] MEDS ORDERED: Potassium Chloride 40 mEq/30 ml LIQ UD PO ONE (08:35)
[2018-07-23] MEDS ORDERED: Potassium Chloride 40 mEq/30 ml LIQ UD PO STA (08:35)
[2018-07-23] MEDS ORDERED: Magnesium Sulfate 2 gm/50 ml 2 GM/50 ML BAG IVPB ONE (08:36)
[2018-07-23] MEDS: Potassium Chloride 10 mEq ER Tab PO SCH ×2 (09:12→17:24)
[2018-07-23] MEDS ORDERED: Potassium Chloride 20 mEq ER Tab PO SCH (10:00)
[2018-07-23] MEDS: Amoxicillin-Clav 875-125 mg Tab PO SCH ×2 (11:53→23:01)
[2018-07-24] MEDS: Pantoprazole 40 mg EC Tab PO SCH (06:13)
--- NOTE | 2018-07-24 06:17 | CP.PCM.PN ---
<Jon Beatty - Last Filed: 07/24/18 12:59> Subjective - Date & Time of Evaluation Date of Evaluation: 07/24/18 Time of Evaluation: 06:13 - Subjective Subjective: Jon Beatty DO PGY-1, Internal Medicine Resident. Hospitalist Progress Note Patient seen and examined at bedside. Patient is resting in bed. No acute events overnight. Tolerating his diet with regular bowel movements. Patient reported improving SOB and leg swelling but scrotal swelling is not improving. Patient denied CP, palpitations, headache, fever. Objective - Vital Signs/Intake and Output Vital Signs (last 24 hours): Temp Pulse Resp BP Pulse Ox 98.4 F 64 20 105/77 98 07/24/18 00:01 07/24/18 02:00 07/24/18 00:01 07/24/18 00:01 07/24/18 00:01 Intake and Output: 07/23/18 07/24/18 18:59 06:59 Intake Total 710 Output Total 3100 Balance -2390 - Medications Medications: Current Medications Amoxicillin/Clavulanate Potassium (Augmentin 875 Mg-125 Mg Tab) 1 tab PO Q12 [facility] PRN Reason: Protocol Last Admin: 07/23/18 23:01 Dose: 1 tab Apixaban (Eliquis) 5 mg PO BID [facility] PRN Reason: Protocol Last Admin: 07/23/18 17:24 Dose: 5 mg Atorvastatin Calcium (Lipitor) 40 mg PO HS [facility] Last Admin: 07/23/18 23:01 Dose: 40 mg Carvedilol (Coreg) 12.5 mg PO BID [facility] Last Admin: 07/23/18 17:15 Dose: Not Given Furosemide (Lasix) 40 mg IVP Q12 [facility] Last Admin: 07/23/18 23:04 Dose: 40 mg Lisinopril (Zestril) 5 mg PO DAILY [facility] Last Admin: 07/23/18 09:14 Dose: 5 mg Pantoprazole Sodium (Protonix Ec Tab) 40 mg PO 0600 [facility] Last Admin: 07/23/18 05:42 Dose: 40 mg Potassium Chloride (Klor-Con 10) 30 meq PO BID [facility] Last Admin: 07/23/18 17:24 Dose: 30 meq Spironolactone (Aldactone) 25 mg PO BID [facility] Last Admin: 07/23/18 17:24 Dose: 25 mg - Labs Labs: 07/23/18 06:30 07/23/18 06:30 PT 17.3 SECONDS (9.4-12.5) H 07/21/18 07:50 INR 1.49 07/21/18 07:50 APTT 30.5 Seconds (25.1-36.5) 07/21/18 07:50 - Additional Findings Additional findings: - Constitutional Appears: Well, No Acute Distress - Head Exam Head Exam: ATRAUMATIC, NORMOCEPHALIC Additional comments: mass anterior to left ear. soft, fluid filled, no signs of infection, no erythema, no drainage - Eye Exam Eye Exam: EOMI, Normal appearance, PERRL Pupil Exam: NORMAL ACCOMODATION, PERRL - ENT Exam ENT Exam: Mucous Membranes Moist, Normal Exam - Neck Exam Neck Exam: Full ROM, Normal Inspection. absent: Lymphadenopathy - Respiratory Exam Respiratory Exam: Clear to Ausculation Bilateral, NORMAL BREATHING PATTERN - Cardiovascular Exam Cardiovascular Exam: +S1, +S2, Murmur - GI/Abdominal Exam GI & Abdominal Exam: Soft, Normal Bowel Sounds. absent: Guarding, Tenderness, Organomegaly, Pulsatile Mass Additional comments: distended abdomen - Exam Additional comments: enlarged scrotum - Extremities Exam Extremities Exam: Full ROM, Pedal Edema. absent: Calf Tenderness Additional comments: b/l LL pitting edema, improving - Back Exam Back Exam: NORMAL INSPECTION - Neurological Exam Neurological Exam: Alert, Awake, CN II-XII Intact, Oriented x3 - Psychiatric Exam Psychiatric exam: Normal Affect, Normal Mood - Skin Additional comments: b/l LE skin changes. with pustules and dried pus. erythema, dark discoloration Assessment and Plan - Assessment and Plan (Free Text) Assessment: 62 year old male with PMH of CAD s/p stents palced, CABG, A-Fib on Eliquis and Systolic CHF presented to ED for SOB and progressive LE edema x4 days. Admitted to telemetry for observation and CHF exacerbation Plan: Shortness of breath -likely due to CHF exacerbation. 3+ LE edema -EKG: Afib, Rsuperior axis deviation -Troponin negative x3 -CXR: b/l infilterate/fluid -Echo: EF 17.7%, PHTN, global LV hypokinesis, severely reduced RV systolic function -admit to tele -continue lasix 40 BID, Aldactone 25 BID -continue home meds coreg, asa, lipitor, plavix -BNP 6470 -continue O2 NC 2L prn -daily weight -fluid restriction, I/O -Testicular U/S: no torsion, soft tissue swelling with hydrocele -fluid intake restriction to 1200 cc -O2 weaned off -Hold asa, plavix as per cardio -Mg, K repleted -lisinopril increased to 10 mg daily -scrotal elevation ordered B/L lower extremities wounds -likely due to chronic venous stasis -wound culture sent -continue augmentin -wound care Hx A Fib -continue home Eliquis, Coreg -admit to telemetry Left facial cystic mass -chronic, for years -no signs of infection, drainage, erythema -[place] [facility] [place]no treatment needed at this time Prophylaxis GI ppx: Protonix DVTppx: Eliquis OOB Heart healthy diet Case reviewed and plan discussed with Dr Mendez <Ashia Mendez - Last Filed: 07/25/18 18:53> Objective - Vital Signs/Intake and Output Vital Signs (last 24 hours): Temp Pulse Resp BP Pulse Ox 97.2 F L 60 17 116/77 94 L 07/25/18 12:00 07/25/18 18:00 07/25/18 12:00 07/25/18 17:23 07/25/18 06:00 Intake and Output: 07/25/18 07/25/18 06:59 18:59 Intake Total 960 540 Output Total 500 1200 Balance 460 -660 - Medications Medications: Current Medications Amoxicillin/Clavulanate Potassium (Augmentin 875 Mg-125 Mg Tab) 1 tab PO Q12 [facility] PRN Reason: Protocol Last Admin: 07/25/18 09:13 Dose: 1 tab Apixaban (Eliquis) 5 mg PO BID [facility] PRN Reason: Protocol Last Admin: 07/25/18 17:23 Dose: 5 mg Atorvastatin Calcium (Lipitor) 40 mg PO HS [facility] Last Admin: 07/24/18 22:46 Dose: 40 mg Carvedilol (Coreg) 12.5 mg PO BID [facility] Last Admin: 07/25/18 17:23 Dose: 12.5 mg Furosemide (Lasix) 40 mg IVP Q12 [facility] Last Admin: 07/25/18 09:19 Dose: 40 mg Lisinopril (Zestril) 10 mg PO DAILY [facility] Last Admin: 07/25/18 09:18 Dose: 10 mg Magnesium Oxide (Mag-Ox) 400 mg PO BID [facility] Last Admin: 07/25/18 17:23 Dose: 400 mg Pantoprazole Sodium (Protonix Ec Tab) 40 mg PO 0600 [facility] Last Admin: 07/25/18 05:09 Dose: 40 mg Potassium Chloride (Klor-Con 10) 30 meq PO BID [facility] Last Admin: 07/25/18 17:23 Dose: 30 meq Spironolactone (Aldactone) 25 mg PO BID [facility] Last Admin: 07/25/18 17:23 Dose: 25 mg - Labs Labs: 07/25/18 07:00 07/25/18 07:00 PT 17.3 SECONDS (9.4-12.5) H 07/21/18 07:50 INR 1.49 07/21/18 07:50 APTT 30.5 Seconds (25.1-36.5) 07/21/18 07:50 Attending/Attestation - Attestation I have personally seen and examined this patient.: Yes I have fully participated in the care of the patient.: Yes I have reviewed all pertinent clinical information, including history, physical exam and plan: Yes Notes (Text): 07/25/18 18:53 Medical record note made by the resident after discussion with my direction and input after the patient was personally seen and examined by me. I have reviewed the chart and agree that the record accurately reflects by personal performance of the history, physical exam, data review, and medical decision-making, in the course for the patient. I have also personally directed the plan of care.
[2018-07-24 07:19] LABS: BASO # 0.03 K/mm3 (0.0-2.0); BASO % 0.5 % (0.0-3.0); EOS # 0.2 (0.0-0.7); EOS % 2.9 % (1.5-5.0); GRAN # 3.5 (1.4-6.5); HEMOGLOBIN 15.6 g/dL (14.0-18.0); LYMPH # 1.2 (1.2-3.4); LYMPH % 21.9 % (22.0-35.0); MEAN CELL VOLUME 86.9 fl (80.0-105.0); MEAN CORPUSCULAR HEMOGLOBIN 27.9 pg (25.0-35.0); MEAN CORPUSCULAR HGB CONC 32.1 g/dl (31.0-37.0); MEAN PLATELET VOLUME 10.2 fl (7.0-11.0); MONO # 0.7 (0.1-0.6); MONO % 11.7 % (1.0-6.0); RBC 5.59 10^6/uL (3.5-6.1); RED CELL DISTRIBUTION WIDTH 16.7 % (11.5-14.5); WHITE BLOOD COUNT 5.6 10^3/ul (4.5-11.0)
[2018-07-24 07:44] LABS: ALB/GLOB RATIO 1.1 (1.1-1.8); ALBUMIN 3.4 g/dL (3.0-4.8); ALT/SGPT 33 U/L (7-56); AST/SGOT 44 U/L (17-59); BLOOD UREA NITROGEN 20 mg/dL (7-21); CALCIUM 9.1 mg/dL (8.4-10.5); GFR NON-AFRICAN AMERICAN > 60
[2018-07-24 07:51] LABS: B-TYPE NATRIURETIC PEPTIDE 2320 pg/mL (0-450)
--- NOTE | 2018-07-24 07:57 | CP.PCM.PN ---
Subjective - Date & Time of Evaluation Date of Evaluation: 07/24/18 Time of Evaluation: 07:00 - Subjective Subjective: Stable on 2R. No CP or SOB. He feels better. Still dyspnea with ambulation in hallway V/S noted. AF. runs NSVT noted. PE: Lungs: rhonchi Cor.: irreg., S1S2 Abd.: soft Ext.: + edema Neuro.: alert I/O = 830/5000 recorded Labs noted: K+= 4.0, Mg+= 1.9, Cr.= 0.9 Urine C+S: Enterobacter cloa. BC X2 NG at 48 hrs. Echo noted: Severe LVD, mod. MR and PH, mod/sev. TR Objective - Vital Signs/Intake and Output Vital Signs (last 24 hours): Temp Pulse Resp BP Pulse Ox 97.4 F L 68 19 103/72 98 07/24/18 06:00 07/24/18 06:00 07/24/18 06:00 07/24/18 06:00 07/24/18 06:00 Intake and Output: 07/24/18 07/24/18 06:59 18:59 Intake Total 120 Output Total 1900 Balance -1780 - Medications Medications: Current Medications Amoxicillin/Clavulanate Potassium (Augmentin 875 Mg-125 Mg Tab) 1 tab PO Q12 [facility] PRN Reason: Protocol Last Admin: 07/23/18 23:01 Dose: 1 tab Apixaban (Eliquis) 5 mg PO BID [facility] PRN Reason: Protocol Last Admin: 07/23/18 17:24 Dose: 5 mg Atorvastatin Calcium (Lipitor) 40 mg PO HS [facility] Last Admin: 07/23/18 23:01 Dose: 40 mg Carvedilol (Coreg) 12.5 mg PO BID [facility] Last Admin: 07/23/18 17:15 Dose: Not Given Furosemide (Lasix) 40 mg IVP Q12 [facility] Last Admin: 07/23/18 23:04 Dose: 40 mg Lisinopril (Zestril) 5 mg PO DAILY [facility] Last Admin: 07/23/18 09:14 Dose: 5 mg Pantoprazole Sodium (Protonix Ec Tab) 40 mg PO 0600 [facility] Last Admin: 07/24/18 06:13 Dose: 40 mg Potassium Chloride (Klor-Con 10) 30 meq PO BID [facility] Last Admin: 07/23/18 17:24 Dose: 30 meq Spironolactone (Aldactone) 25 mg PO BID [facility] Last Admin: 07/23/18 17:24 Dose: 25 mg - Labs Labs: 07/24/18 06:30 07/24/18 06:30 PT 17.3 SECONDS (9.4-12.5) H 07/21/18 07:50 INR 1.49 07/21/18 07:50 APTT 30.5 Seconds (25.1-36.5) 07/21/18 07:50 Assessment and Plan - Assessment and Plan (Free Text) Assessment: MAGAÑA/Edema CHF NSVT on tel CCM with nl cors at cath [facility] [place] Smoker Pre-auricular mass Remote ETOH Homeless Plan: Continue diuresis, tel, I/Os Get [facility] [place] Hold ASA and Plavix until cath data available: D/C if no CAD/stents. OOB as oneal. Monitor: labs, I/O, sats., etc
[2018-07-24] MEDS: Amoxicillin-Clav 875-125 mg Tab PO SCH ×2 (09:23→22:47)
[2018-07-24] MEDS: Magnesium Oxide 400 mg Tab UD PO SCH ×2 (09:23→17:28)
[2018-07-24] MEDS: Potassium Chloride 10 mEq ER Tab PO SCH ×2 (09:24→17:27)
--- NOTE | 2018-07-24 17:16 | CP.PCM.CON ---
History of Present Illness - History of Present Illness History of Present Illness: IMP: EDEMA OF GENITALIA CHF A FIB EDEMA OF LOWER EXT FULL NOTE TBD YS Past Patient History - Infectious Disease Hx of Infectious Diseases: None - Past Social History Smoking Status: Never Smoked - CARDIAC Hx Cardiac Disorders: Yes (A fib on eliquis) Hx Congestive Heart Failure: Yes - PULMONARY Hx Respiratory Disorders: Yes Hx Pneumonia: Yes ( as per pt) - NEUROLOGICAL Hx Neurological Disorder: No - HEENT Hx HEENT Problems: Yes Other/Comment: [place] left ear pt stated "it comes and goes" - RENAL Hx Chronic Kidney Disease: No - ENDOCRINE/METABOLIC Hx Endocrine Disorders: No - HEMATOLOGICAL/ONCOLOGICAL Hx Blood Disorders: No - INTEGUMENTARY Hx Dermatological Problems: Yes Other/Comment: 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, 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", chronic cellulitis ble redness to skin, skin discolorations, multiple open draining and closed wounds +3 pitting edema legs and feet, long thick hard toenails, poor hygeine foul smell and dirty finger and toenails, small 0.5 round cyst left uppr back flesh colored, left chest wall staple dry and intact for defibrillator insertion in may 2018, redness to lower abd, redness and swelling to penis and scrotum, redness travels around to buttocks, small 0.5cm round growth to right eyelid - MUSCULOSKELETAL/RHEUMATOLOGICAL Hx Musculoskeletal Disorders: No Hx Falls: No - GASTROINTESTINAL Hx Gastrointestinal Disorders: Yes (obese) Hx Gastroesophageal Reflux: Yes - GENITOURINARY/GYNECOLOGICAL Hx Genitourinary Disorders: No - PSYCHIATRIC Hx Psychophysiologic Disorder: No Hx Substance Use: No - SURGICAL HISTORY Hx Surgeries: Yes Hx Cardiac Catheterization: Yes (pt thinks he had c cath 01/2018 [facility] [place]) Other/Comment: defibrillator implantion 05/20/18 [facility] [place], questionable cardiac cath at [facility] [place] 01/2018 as stated by pt who is uncertain Meds Allergies/Adverse Reactions: Allergies Allergy/AdvReac Type Severity Reaction Status Date / Time No Known Allergies Allergy Verified 07/21/18 07:12 - Medications Medications: Current Medications Amoxicillin/Clavulanate Potassium (Augmentin 875 Mg-125 Mg Tab) 1 tab PO Q12 [facility] PRN Reason: Protocol Last Admin: 07/24/18 09:23 Dose: 1 tab Apixaban (Eliquis) 5 mg PO BID [facility] PRN Reason: Protocol Last Admin: 07/24/18 09:25 Dose: 5 mg Atorvastatin Calcium (Lipitor) 40 mg PO HS [facility] Last Admin: 07/23/18 23:01 Dose: 40 mg Carvedilol (Coreg) 12.5 mg PO BID [facility] Last Admin: 07/24/18 09:24 Dose: 12.5 mg Furosemide (Lasix) 40 mg IVP Q12 [facility] Last Admin: 07/24/18 09:23 Dose: 40 mg Lisinopril (Zestril) 10 mg PO DAILY [facility] Magnesium Oxide (Mag-Ox) 400 mg PO BID [facility] Last Admin: 07/24/18 09:23 Dose: 400 mg Pantoprazole Sodium (Protonix Ec Tab) 40 mg PO 0600 [facility] Last Admin: 07/24/18 06:13 Dose: 40 mg Potassium Chloride (Klor-Con 10) 30 meq PO BID [facility] Last Admin: 07/24/18 09:24 Dose: 30 meq Spironolactone (Aldactone) 25 mg PO BID [facility] Last Admin: 07/24/18 09:24 Dose: 25 mg Results - Vital Signs Recent Vital Signs: Last Vital Signs Temp 98.5 F 07/24/18 12:00 Pulse 67 07/24/18 12:00 Resp 18 07/24/18 12:00 BP 102/73 07/24/18 12:00 Pulse Ox 98 07/24/18 06:00 - Labs Result Diagrams: 07/24/18 06:30 07/24/18 06:30 Labs: Laboratory Results - last 24 hr 07/24/18 07/24/18 06:30 06:30 WBC 5.6 RBC 5.59 Hgb 15.6 D Hct 48.6 MCV 86.9 MCH 27.9 MCHC 32.1 RDW 16.7 H Plt Count 166 MPV 10.2 Gran % 63.0 Lymph % (Auto) 21.9 L [place] % (Auto) 11.7 H Eos % (Auto) 2.9 Baso % (Auto) 0.5 Gran # 3.50 Lymph # (Auto) 1.2 [place] # (Auto) 0.7 H Eos # (Auto) 0.2 Baso # (Auto) 0.03 Sodium 138 Potassium 4.0 Chloride 97 L Carbon Dioxide 33 Anion Gap 11 BUN 20 Creatinine 0.9 Est GFR ( Amer) > 60 Est GFR (Non-Af Amer) > 60 Random Glucose 79 Calcium 9.1 Phosphorus 3.5 Magnesium 1.9 Total Bilirubin 2.3 H AST 44 ALT 33 Alkaline Phosphatase 205 H D NT-Pro-B Natriuret Pep 2320 H Total Protein 6.5 Albumin 3.4 Globulin 3.2 Albumin/Globulin Ratio 1.1 Assessment & Plan - Date & Time Date: 07/24/18 Time: 17:15
[2018-07-25] MEDS: Pantoprazole 40 mg EC Tab PO SCH (05:09)
[2018-07-25 07:53] LABS: BASO # 0.03 K/mm3 (0.0-2.0); BASO % 0.6 % (0.0-3.0); EOS # 0.2 (0.0-0.7); GRAN # 3.02 (1.4-6.5); GRAN % 60.1 % (50.0-68.0); HEMOGLOBIN 14.2 g/dL (14.0-18.0); LYMPH # 1.3 (1.2-3.4); LYMPH % 25.5 % (22.0-35.0); MEAN CELL VOLUME 87.7 fl (80.0-105.0); MEAN CORPUSCULAR HEMOGLOBIN 27.7 pg (25.0-35.0); MEAN CORPUSCULAR HGB CONC 31.6 g/dl (31.0-37.0); MONO # 0.5 (0.1-0.6); MONO % 10.8 % (1.0-6.0); RBC 5.13 10^6/uL (3.5-6.1); RED CELL DISTRIBUTION WIDTH 16.7 % (11.5-14.5)
[2018-07-25 08:13] LABS: ALT/SGPT 33 U/L (7-56); AST/SGOT 45 U/L (17-59); BLOOD UREA NITROGEN 18 mg/dL (7-21); CALCIUM 8.7 mg/dL (8.4-10.5); GFR NON-AFRICAN AMERICAN > 60
[2018-07-25] MEDS: Potassium Chloride 10 mEq ER Tab PO SCH ×2 (09:13→17:23)
[2018-07-25] MEDS: Amoxicillin-Clav 875-125 mg Tab PO SCH ×2 (09:13→21:45)
[2018-07-25] MEDS: Magnesium Oxide 400 mg Tab UD PO SCH ×2 (09:14→17:23)
--- NOTE | 2018-07-25 13:48 | PN ---
DATE: 07/25/2018 SUBJECTIVE: The patient is seen sitting in chair on Telemetry. He states he feels more comfortable. His edema is improving. His dyspnea is improved as well. His current medications include Aldactone 25 mg b.i.d., Augmentin, carvedilol 12.5 mg b.i.d., Eliquis 5 mg b.i.d., Lasix 40 mg every 12 hours., potassium supplement, Lipitor 40 mg daily, magnesium supplement, Protonix 40 mg daily and Zestril 10 mg daily. OBJECTIVE: GENERAL: He is an obese middle-aged man. VITAL SIGNS: Blood pressure is 96/70 with pulse of 70, in atrial fibrillation; respirations are 16. He is afebrile. HEENT: No JVD. CHEST: Clear to auscultation and percussion. HEART: PMI displaced laterally with soft tones noted. Systolic murmur in left sternal border. ABDOMEN: Soft, obese, nontender. Normoactive bowel sounds. EXTREMITIES: A 2+ leg edema. DIAGNOSTIC DATA: Potassium 4.2. BUN and creatinine 18 and 0.9. White count 5, hematocrit 14.2 and 45 with platelet count 166,000. IMPRESSION: 1. Decompensated congestive heart failure, acute on chronic, predominantly systolic. 2. Chronic atrial fibrillation. 3. Congestive cardiomyopathy. 4. Status post implantable cardioverter-defibrillator implant. 5. History of tobacco abuse. RECOMMENDATIONS: Current medications should be continued for now. Continued IV diuresis is advised. Anticoagulation, we will continue given his atrial fibrillation. He does state that he has a place to live upon discharge. Verification of this will be important and the need for his ability to obtain medications and maintain compliance with these will be important as well. We will continue to follow and make further recommendations as appropriate. Leonel Sánchez MD MTDD
--- NOTE | 2018-07-25 17:01 | CP.PCM.PN ---
<Henry Garrido - Last Filed: 07/25/18 16:58> Subjective - Date & Time of Evaluation Date of Evaluation: 07/25/18 Time of Evaluation: 08:00 - Subjective Subjective: Patient seen and examined at bedside in no acute distress. Patient offers no new complaints. 12-point ROS obtained, otherwise neg as per patient. Objective - Vital Signs/Intake and Output Vital Signs (last 24 hours): Temp Pulse Resp BP Pulse Ox 97.2 F L 67 17 108/64 94 L 07/25/18 12:00 07/25/18 14:00 07/25/18 12:00 07/25/18 12:00 07/25/18 06:00 Intake and Output: 07/25/18 07/25/18 06:59 18:59 Intake Total 960 Output Total 500 Balance 460 - Medications Medications: Current Medications Amoxicillin/Clavulanate Potassium (Augmentin 875 Mg-125 Mg Tab) 1 tab PO Q12 [facility] PRN Reason: Protocol Last Admin: 07/25/18 09:13 Dose: 1 tab Apixaban (Eliquis) 5 mg PO BID [facility] PRN Reason: Protocol Last Admin: 07/25/18 09:13 Dose: 5 mg Atorvastatin Calcium (Lipitor) 40 mg PO HS [facility] Last Admin: 07/24/18 22:46 Dose: 40 mg Carvedilol (Coreg) 12.5 mg PO BID [facility] Last Admin: 07/25/18 09:19 Dose: 12.5 mg Furosemide (Lasix) 40 mg IVP Q12 [facility] Last Admin: 07/25/18 09:19 Dose: 40 mg Lisinopril (Zestril) 10 mg PO DAILY [facility] Last Admin: 07/25/18 09:18 Dose: 10 mg Magnesium Oxide (Mag-Ox) 400 mg PO BID [facility] Last Admin: 07/25/18 09:14 Dose: 400 mg Pantoprazole Sodium (Protonix Ec Tab) 40 mg PO 0600 [facility] Last Admin: 07/25/18 05:09 Dose: 40 mg Potassium Chloride (Klor-Con 10) 30 meq PO BID [facility] Last Admin: 07/25/18 09:13 Dose: 30 meq Spironolactone (Aldactone) 25 mg PO BID [facility] Last Admin: 07/25/18 09:13 Dose: 25 mg - Labs Labs: 07/25/18 07:00 07/25/18 07:00 PT 17.3 SECONDS (9.4-12.5) H 07/21/18 07:50 INR 1.49 07/21/18 07:50 APTT 30.5 Seconds (25.1-36.5) 07/21/18 07:50 - Head Exam Head Exam: ATRAUMATIC, NORMOCEPHALIC. absent: NORMAL INSPECTION Additional comments: tumor growth on left ear - Eye Exam Eye Exam: EOMI - ENT Exam ENT Exam: Mucous Membranes Moist - Respiratory Exam Respiratory Exam: Clear to Ausculation Bilateral, NORMAL BREATHING PATTERN. absent: Rhonchi, Wheezes - Cardiovascular Exam Cardiovascular Exam: REGULAR RHYTHM, +S1, +S2 - GI/Abdominal Exam GI & Abdominal Exam: Soft, Normal Bowel Sounds - Extremities Exam Extremities Exam: Full ROM. absent: Normal Inspection (venous stasis bilaterally) - Back Exam Back Exam: NORMAL INSPECTION - Neurological Exam Neurological Exam: Alert, Awake, Oriented x3 - Psychiatric Exam Psychiatric exam: Normal Affect, Normal Mood - Skin Skin Exam: Normal Color, Warm Assessment and Plan - Assessment and Plan (Free Text) Assessment: 62 year old male with PMH of CAD s/p stents palced, CABG, A-Fib on Eliquis and Systolic CHF presented to ED for SOB and progressive LE edema x4 days. Admitted to for observation and CHF exacerbation Plan: Shortness of breath -likely due to CHF exacerbation. 3+ LE edema -EKG: Afib, Rsuperior axis deviation -Troponin negative x3 -CXR: b/l infilterate/fluid -Echo: EF 17.7%, PHTN, global LV hypokinesis, severely reduced RV systolic function -continue lasix 40 BID, Aldactone 25 BID -continue home meds coreg, asa, lipitor -continue O2 NC 2L prn -daily weight -fluid restriction, I/O -Testicular U/S: no torsion, soft tissue swelling with hydrocele;recommend continued scrotal elevation -fluid intake restriction to 1200 cc -Hold asa and plavix as per cardio -monitor electrolytes -continue lisinopril 10 mg daily B/L lower extremities wounds -likely due to chronic venous stasis -continue augmentin -continue with wound care Hx A Fib -continue home Eliquis, Coreg Left facial cystic mass -chronic, for years -no signs of infection, drainage, erythema -[place] [facility] [place] -no treatment needed at this time Prophylaxis GI ppx: Protonix DVTppx: Eliquis OOB Heart healthy diet Case reviewed and plan discussed with Dr Mendez <Ashia Mendez - Last Filed: 07/25/18 18:49> Objective - Vital Signs/Intake and Output Vital Signs (last 24 hours): Temp Pulse Resp BP Pulse Ox 97.2 F L 60 17 116/77 94 L 07/25/18 12:00 07/25/18 18:00 07/25/18 12:00 07/25/18 17:23 07/25/18 06:00 Intake and Output: 07/25/18 07/25/18 06:59 18:59 Intake Total 960 Output Total 500 Balance 460 - Medications Medications: Current Medications Amoxicillin/Clavulanate Potassium (Augmentin 875 Mg-125 Mg Tab) 1 tab PO Q12 [facility] PRN Reason: Protocol Last Admin: 07/25/18 09:13 Dose: 1 tab Apixaban (Eliquis) 5 mg PO BID [facility] PRN Reason: Protocol Last Admin: 07/25/18 17:23 Dose: 5 mg Atorvastatin Calcium (Lipitor) 40 mg PO HS [facility] Last Admin: 07/24/18 22:46 Dose: 40 mg Carvedilol (Coreg) 12.5 mg PO BID [facility] Last Admin: 07/25/18 17:23 Dose: 12.5 mg Furosemide (Lasix) 40 mg IVP Q12 [facility] Last Admin: 07/25/18 09:19 Dose: 40 mg Lisinopril (Zestril) 10 mg PO DAILY [facility] Last Admin: 07/25/18 09:18 Dose: 10 mg Magnesium Oxide (Mag-Ox) 400 mg PO BID [facility] Last Admin: 07/25/18 17:23 Dose: 400 mg Pantoprazole Sodium (Protonix Ec Tab) 40 mg PO 0600 [facility] Last Admin: 07/25/18 05:09 Dose: 40 mg Potassium Chloride (Klor-Con 10) 30 meq PO BID [facility] Last Admin: 07/25/18 17:23 Dose: 30 meq Spironolactone (Aldactone) 25 mg PO BID [facility] Last Admin: 07/25/18 17:23 Dose: 25 mg - Labs Labs: 07/25/18 07:00 07/25/18 07:00 PT 17.3 SECONDS (9.4-12.5) H 07/21/18 07:50 INR 1.49 07/21/18 07:50 APTT 30.5 Seconds (25.1-36.5) 07/21/18 07:50 Attending/Attestation - Attestation I have personally seen and examined this patient.: Yes I have fully participated in the care of the patient.: Yes I have reviewed all pertinent clinical information, including history, physical exam and plan: Yes Notes (Text): 07/25/18 18:45 Medical record note made by the resident after discussion with my direction and input after the patient was personally seen and examined by me. I have reviewed the chart and agree that the record accurately reflects by personal performance of the history, physical exam, data review, and medical decision-making, in the course for the patient. I have also personally directed the plan of care. 62 year old male with PMH of CAD ,SP stents ? , CHF with systolic dysfunction EF 19%,SP AICD,, A-Fib on Eliquis , non compliance with medication was admitted with acute on chronic CHF exacerbation,(worsening dyspnea, leg swelling and scrotal swelling), .Patient has responded well to IV lasix ,Leg swelling is improving,continue IV lasix/lisinopril and aldactone.Renal functions are stable. Cardiology evaluation is appreciated. Bilateral leg wound , cellulitis, wound culture grew enterobacetr, on oral Augmentin. Management plan was discussed in detail with patient. Education was provided.
[2018-07-26] MEDS: Pantoprazole 40 mg EC Tab PO SCH (05:24)
[2018-07-26 08:19] LABS: BASO # 0.05 K/mm3 (0.0-2.0); BASO % 0.9 % (0.0-3.0); EOS # 0.2 (0.0-0.7); EOS % 3.3 % (1.5-5.0); GRAN # 3.49 (1.4-6.5); GRAN % 60.9 % (50.0-68.0); HEMOGLOBIN 14.4 g/dL (14.0-18.0); LYMPH # 1.3 (1.2-3.4); MEAN CELL VOLUME 88.3 fl (80.0-105.0); MEAN CORPUSCULAR HEMOGLOBIN 27.6 pg (25.0-35.0); MEAN CORPUSCULAR HGB CONC 31.2 g/dl (31.0-37.0); MEAN PLATELET VOLUME 10.7 fl (7.0-11.0); MONO # 0.7 (0.1-0.6); MONO % 12.9 % (1.0-6.0); RBC 5.22 10^6/uL (3.5-6.1); RED CELL DISTRIBUTION WIDTH 16.7 % (11.5-14.5); WHITE BLOOD COUNT 5.7 10^3/ul (4.5-11.0)
[2018-07-26 08:58] LABS: ALBUMIN 3.1 g/dL (3.0-4.8); ALT/SGPT 36 U/L (7-56); AST/SGOT 48 U/L (17-59); BLOOD UREA NITROGEN 19 mg/dL (7-21); GFR NON-AFRICAN AMERICAN > 60
[2018-07-26] MEDS: Amoxicillin-Clav 875-125 mg Tab PO SCH ×2 (10:16→22:18)
[2018-07-26] MEDS: Potassium Chloride 10 mEq ER Tab PO SCH ×2 (10:18→17:57)
[2018-07-26] MEDS: Magnesium Oxide 400 mg Tab UD PO SCH ×2 (10:18→17:58)
--- NOTE | 2018-07-26 11:16 | CP.PCM.PN ---
<Henry Garrido - Last Filed: 07/26/18 14:03> Subjective - Date & Time of Evaluation Date of Evaluation: 07/26/18 Time of Evaluation: 06:30 - Subjective Subjective: Patient seen and examined at bedside in no acute distress. Patient offers no new complaints. 12-point ROS obtained, otherwise neg as per patient. Patient states [facility] sleeps at a [facility] in [place] where he is provided a place to stay and warm meals. Also works at the [employer] and gets paid. Objective - Vital Signs/Intake and Output Vital Signs (last 24 hours): Temp Pulse Resp BP Pulse Ox 97.9 F 54 L 20 106/70 98 07/26/18 06:00 07/26/18 10:18 07/26/18 06:00 07/26/18 10:18 07/26/18 06:00 Intake and Output: 07/26/18 07/26/18 06:59 18:59 Intake Total 180 Output Total 1750 Balance -1570 - Medications Medications: Current Medications Amoxicillin/Clavulanate Potassium (Augmentin 875 Mg-125 Mg Tab) 1 tab PO Q12 [facility] PRN Reason: Protocol Last Admin: 07/26/18 10:16 Dose: 1 tab Apixaban (Eliquis) 5 mg PO BID [facility] PRN Reason: Protocol Last Admin: 07/26/18 10:17 Dose: 5 mg Atorvastatin Calcium (Lipitor) 40 mg PO HS [facility] Last Admin: 07/25/18 21:46 Dose: 40 mg Carvedilol (Coreg) 12.5 mg PO BID [facility] Last Admin: 07/26/18 10:16 Dose: 12.5 mg Furosemide (Lasix) 40 mg IVP Q12 [facility] Last Admin: 07/26/18 10:18 Dose: 40 mg Lisinopril (Zestril) 10 mg PO DAILY [facility] Last Admin: 07/26/18 10:18 Dose: 10 mg Magnesium Oxide (Mag-Ox) 400 mg PO BID [facility] Last Admin: 07/26/18 10:18 Dose: 400 mg Pantoprazole Sodium (Protonix Ec Tab) 40 mg PO 0600 [facility] Last Admin: 07/26/18 05:24 Dose: 40 mg Potassium Chloride (Klor-Con 10) 30 meq PO BID [facility] Last Admin: 07/26/18 10:18 Dose: 30 meq Spironolactone (Aldactone) 25 mg PO BID [facility] Last Admin: 07/26/18 10:16 Dose: 25 mg - Labs Labs: 07/26/18 07:00 07/26/18 07:00 PT 17.3 SECONDS (9.4-12.5) H 07/21/18 07:50 INR 1.49 07/21/18 07:50 APTT 30.5 Seconds (25.1-36.5) 07/21/18 07:50 - Head Exam Head Exam: ATRAUMATIC, NORMAL INSPECTION, NORMOCEPHALIC - Eye Exam Eye Exam: EOMI, Normal appearance - ENT Exam ENT Exam: Mucous Membranes Moist. 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 absent: Wheezes - Cardiovascular Exam Cardiovascular Exam: REGULAR RHYTHM, +S1, +S2 - GI/Abdominal Exam GI & Abdominal Exam: Soft, Normal Bowel Sounds - Extremities Exam Extremities Exam: Normal Inspection, Pedal Edema (continues to improve) - Back Exam Back Exam: NORMAL INSPECTION - Neurological Exam Neurological Exam: Alert, Awake, Oriented x3 - Psychiatric Exam Psychiatric exam: Normal Affect, Normal Mood - Skin Skin Exam: Intact, Normal Color, Warm Assessment and Plan - Assessment and Plan (Free Text) Assessment: 62 year old male with PMH of CAD s/p stents palced, CABG, A-Fib on Eliquis and Systolic CHF presented to ED for SOB and progressive LE edema x4 days. Admitted to for observation and CHF exacerbation Plan: Shortness of breath -likely due to CHF exacerbation. 1+ LE edema -EKG: Afib, Rsuperior axis deviation -Troponin negative x3 -CXR: b/l infilterate/fluid -Echo: EF 17.7%, PHTN, global LV hypokinesis, severely reduced RV systolic function -continue lasix 40 BID, Aldactone 25 BID -continue home meds coreg, asa, lipitor -continue O2 NC 2L prn -daily weight -fluid restriction, I/O -Testicular U/S: no torsion, soft tissue swelling with hydrocele;improving; continue with recommended scrotal elevation -fluid intake restriction to 1200 cc -Hold asa to prevent increased risk of bleed. Will continue with plavix as meds [place] [facility]. Cath report has not been received as of yet [place] [facility] therefore cannot give an exact reason at the moment for plavix however will continue on patient in case of stent placement since patient cannot recall. -monitor electrolytes -continue lisinopril 10 mg daily B/L lower extremities wounds -likely due to chronic venous stasis -continue augmentin -continue with wound care Hx A Fib -continue home Abhay Arredondo Left facial cystic mass -chronic, for years -no signs of infection, drainage, erythema -[place] [facility] [place] -no treatment needed at this time Prophylaxis GI ppx: Protonix DVTppx: Eliquis OOB Heart healthy diet Case reviewed and plan discussed with Dr Mendez <Ashia Mendez - Last Filed: 07/26/18 16:03> Objective - Vital Signs/Intake and Output Vital Signs (last 24 hours): Temp Pulse Resp BP Pulse Ox 98 F 69 18 107/75 98 07/26/18 12:00 07/26/18 12:00 07/26/18 12:00 07/26/18 12:00 07/26/18 06:00 Intake and Output: 07/26/18 07/26/18 06:59 18:59 Intake Total 180 Output Total 1750 Balance -1570 - Medications Medications: Current Medications Amoxicillin/Clavulanate Potassium (Augmentin 875 Mg-125 Mg Tab) 1 tab PO Q12 [facility] PRN Reason: Protocol Last Admin: 07/26/18 10:16 Dose: 1 tab Apixaban (Eliquis) 5 mg PO BID [facility] PRN Reason: Protocol Last Admin: 07/26/18 10:17 Dose: 5 mg Atorvastatin Calcium (Lipitor) 40 mg PO HS [facility] Last Admin: 07/25/18 21:46 Dose: 40 mg Carvedilol (Coreg) 12.5 mg PO BID [facility] Last Admin: 07/26/18 10:16 Dose: 12.5 mg Furosemide (Lasix) 40 mg IVP Q12 [facility] Last Admin: 07/26/18 10:18 Dose: 40 mg Lisinopril (Zestril) 10 mg PO DAILY [facility] Last Admin: 07/26/18 10:18 Dose: 10 mg Magnesium Oxide (Mag-Ox) 400 mg PO BID [facility] Last Admin: 07/26/18 10:18 Dose: 400 mg Pantoprazole Sodium (Protonix Ec Tab) 40 mg PO 0600 [facility] Last Admin: 07/26/18 05:24 Dose: 40 mg Potassium Chloride (Klor-Con 10) 30 meq PO BID [facility] Last Admin: 07/26/18 10:18 Dose: 30 meq Spironolactone (Aldactone) 25 mg PO BID [facility] Last Admin: 07/26/18 10:16 Dose: 25 mg - Labs Labs: 07/26/18 07:00 07/26/18 07:00 PT 17.3 SECONDS (9.4-12.5) H 07/21/18 07:50 INR 1.49 07/21/18 07:50 APTT 30.5 Seconds (25.1-36.5) 07/21/18 07:50 Attending/Attestation - Attestation I have personally seen and examined this patient.: Yes I have fully participated in the care of the patient.: Yes I have reviewed all pertinent clinical information, including history, physical exam and plan: Yes Notes (Text): 07/26/18 16:02 Medical record note made by the resident after discussion with my direction and input after the patient was personally seen and examined by me. I have reviewed the chart and agree that the record accurately reflects by personal performance of the history, physical exam, data review, and medical decision-making, in the course for the patient. I have also personally directed the plan of care. 62 year old male with PMH of CAD ,SP cardiac stents ? , CHF with systolic dysfunction EF 19%, SP AICD,, A-Fib on Eliquis , non compliance with medication was admitted with worsening dyspnea, leg swelling and scrotal swelling due to acute on chronic CHF exacerbation, Patient has responded well to IV lasix ,Leg swelling is improving,continue IV lasix/lisinopril and aldactone.Renal functions are stable. Cardiology follow up is appreciated. Bilateral leg wound , cellulitis, wound culture grew enterobacetr, on oral Augmentin.Patient is afebrile, improving Management plan was discussed in detail with patient. Education was provided.
--- NOTE | 2018-07-26 11:29 | PN ---
DATE: 07/26/2018 SUBJECTIVE: The patient was seen sitting in chair on telemetry. He is currently comfortable. Peripheral edema is improved, but persists. CURRENT MEDICATIONS: Include spironolactone 25 mg b.i.d., Augmentin, carvedilol 12.5 mg b.i.d., Eliquis 5 mg b.i.d., Lasix 40 mg IV b.i.d., potassium 30 mEq b.i.d., Lipitor 40 mg daily, magnesium, Protonix and Zestril 10 mg daily. OBJECTIVE: GENERAL: He is an obese middle-aged man. VITAL SIGNS: His blood pressure is 110/80 with a pulse of 70, in atrial fibrillation; respirations are 16. He is afebrile. HEENT: No JVD. CHEST: Diminished breath sounds at the bases. HEART: PMI displaced laterally with soft tones noted. Rhythm is irregularly irregular. ABDOMEN: Soft, obese, nontender. Normoactive bowel sounds. EXTREMITIES: 2+ edema to the knees. DIAGNOSTIC DATA: Potassium 4.2, BUN and creatinine 19 and 1. White count 5.7, hemoglobin and hematocrit 14.4 and 46.1 with platelet count 162,000. IMPRESSION: 1. Decompensated congestive heart failure, acute on chronic, predominantly systolic secondary to congestive cardiomyopathy, clinically improved, but does remain volume overloaded. 2. Chronic atrial fibrillation. 3. Morbid obesity. 4. Status post implantable cardioverter-defibrillator implant. 5. History of tobacco abuse. RECOMMENDATIONS: IV diuretics should continue for additional 24 hours for maximum diuresis. All his oral medications should be continued. Chronic anticoagulation is advised as well. The need for outpatient followup, sodium and fluid restriction as well as compliance with his medical therapy was discussed in detail with him. Plans are being made to provide him with prescriptions at the time of discharge. He does state he has somewhere to live at this time. We will follow along as needed. Leonel Sánchez MD
--- NOTE | 2018-07-26 17:53 | CON ---
DATE: 07/26/2018 UROLOGY CONSULTATION Urology consultation is requested by Dr. Mendez. Urology consultation is filled by Dr. Estee Choi. REASON FOR CONSULTATION: Swollen scrotum. HISTORY OF PRESENT ILLNESS: The patient is a 62-year-old male with swollen scrotum. The patient is in otherwise fair health. The patient was admitted on 07/21/2018. The patient was admitted with shortness of breath. The patient has history of CHF. The patient has history of atrial fibrillation. The patient was admitted with difficulty breathing. He also was admitted with lower extremity swelling as well as scrotal swelling. The patient reports that he has had previous cardiologic care. There is no hematuria. No dysuria. The patient voids with fair urinary stream. He reports fatigue. No recent fever or rigors. The patient does not smoke. He reports no chest pain. The patient reports fair appetite. He has no nausea or vomiting. PHYSICAL EXAMINATION GENERAL: The patient is a well-developed, well-nourished male appearing his stated age. ABDOMEN: Soft. Mildly distended. GENITALIA: There is marked edema of the genitalia, which involves the scrotum and the penis. EXTREMITIES: There is severe edema of the lower extremities as well. LABORATORY DATA: Reviewed. Cardiomegaly and a right-sided lung infiltrate is noted. BUN 27, creatinine 0.9. EKG reveals atrial fibrillation. ProB-natriuretic peptide is 6470. Bilirubin is 2.6. The patient's medications include Eliquis, Ecotrin, Lipitor, Coreg, Plavix, Lasix, Zestril, Protonix, potassium, Aldactone. IMPRESSION: Congestive heart failure. Edema of genitalia is secondary to the patient's congestive heart failure. RECOMMENDATION AND PLAN: Scrotal elevation. I applied scrotal elevation into the patient and demonstrated this care to the patient. I have discussed the findings with the nursing staff as well. Further therapy to follow according to the patient's clinical course as well as results of above care. Primary care should be directed towards the patient's CHF. The scrotal edema should improve with scrotal elevation as well as treatment of the CHF. Estee Choi MD
[2018-07-27] MEDS: Pantoprazole 40 mg EC Tab PO SCH (05:59)
[2018-07-27 07:17] LABS: BASO # 0.03 K/mm3 (0.0-2.0); BASO % 0.6 % (0.0-3.0); EOS # 0.1 (0.0-0.7); EOS % 2.3 % (1.5-5.0); GRAN # 3.14 (1.4-6.5); GRAN % 61.5 % (50.0-68.0); HEMOGLOBIN 14.6 g/dL (14.0-18.0); LYMPH # 1.2 (1.2-3.4); LYMPH % 23.3 % (22.0-35.0); MEAN CELL VOLUME 87.6 fl (80.0-105.0); MEAN CORPUSCULAR HEMOGLOBIN 27.4 pg (25.0-35.0); MEAN CORPUSCULAR HGB CONC 31.3 g/dl (31.0-37.0); MEAN PLATELET VOLUME 10.6 fl (7.0-11.0); MONO # 0.6 (0.1-0.6); MONO % 12.3 % (1.0-6.0); RBC 5.32 10^6/uL (3.5-6.1); RED CELL DISTRIBUTION WIDTH 16.7 % (11.5-14.5); WHITE BLOOD COUNT 5.1 10^3/ul (4.5-11.0)
[2018-07-27 07:28] LABS: ALBUMIN 3.2 g/dL (3.0-4.8); ALT/SGPT 39 U/L (7-56); AST/SGOT 49 U/L (17-59); BLOOD UREA NITROGEN 18 mg/dL (7-21); CALCIUM 8.8 mg/dL (8.4-10.5); GFR NON-AFRICAN AMERICAN > 60
--- NOTE | 2018-07-27 08:10 | CP.PCM.PN ---
Subjective - Date & Time of Evaluation Date of Evaluation: 07/27/18 Time of Evaluation: 07:00 - Subjective Subjective: Stable on 2R. No CP or SOB. He feels better. V/S noted. AF. PE: Lungs: clear Cor.: irreg., S1S2 Abd.: soft Ext.: less edema, chronic skin changes Neuro.: alert I/O = [id number] recorded recorded Labs noted today. Urine C+S: Enterobacter cloa. BC X2 NG at 5 days Echo noted: Severe LVD, mod. MR and PH, mod/sev. TR Objective - Vital Signs/Intake and Output Vital Signs (last 24 hours): Temp Pulse Resp BP Pulse Ox 98.4 F 65 20 100/72 98 07/27/18 06:00 07/27/18 06:00 07/27/18 06:00 07/27/18 06:00 07/27/18 06:00 Intake and Output: 07/27/18 07/27/18 06:59 18:59 Intake Total 1400 Output Total 6375 Balance -4975 - Medications Medications: Current Medications Amoxicillin/Clavulanate Potassium (Augmentin 875 Mg-125 Mg Tab) 1 tab PO Q12 [facility] PRN Reason: Protocol Last Admin: 07/26/18 22:18 Dose: 1 tab Apixaban (Eliquis) 5 mg PO BID [facility] PRN Reason: Protocol Last Admin: 07/26/18 17:58 Dose: 5 mg Atorvastatin Calcium (Lipitor) 40 mg PO HS [facility] Last Admin: 07/26/18 22:18 Dose: 40 mg Carvedilol (Coreg) 12.5 mg PO BID [facility] Last Admin: 07/26/18 18:00 Dose: Not Given Furosemide (Lasix) 40 mg PO DAILY [facility] Lisinopril (Zestril) 10 mg PO DAILY [facility] Last Admin: 07/26/18 10:18 Dose: 10 mg Magnesium Oxide (Mag-Ox) 400 mg PO BID [facility] Last Admin: 07/26/18 17:58 Dose: 400 mg Pantoprazole Sodium (Protonix Ec Tab) 40 mg PO 0600 [facility] Last Admin: 07/27/18 05:59 Dose: 40 mg Potassium Chloride (Klor-Con 10) 30 meq PO BID [facility] Last Admin: 07/26/18 17:57 Dose: 30 meq Spironolactone (Aldactone) 25 mg PO BID [facility] Last Admin: 07/26/18 17:57 Dose: 25 mg - Labs Labs: 07/27/18 06:30 07/27/18 06:30 PT 17.3 SECONDS (9.4-12.5) H 07/21/18 07:50 INR 1.49 07/21/18 07:50 APTT 30.5 Seconds (25.1-36.5) 07/21/18 07:50 Assessment and Plan - Assessment and Plan (Free Text) Assessment: MAGAÑA/Edema CHF NSVT on tel CCM with nl cors [place] [facility] [place] Smoker Pre-auricular mass Remote ETOH Homeless Plan: IV > PO Lasix OOB ad yakelin Hold ASA and Plavix until cath data available: D/C if no CAD/stents.
[2018-07-27] MEDS: Potassium Chloride 10 mEq ER Tab PO SCH ×2 (10:29→17:45)
[2018-07-27] MEDS: Magnesium Oxide 400 mg Tab UD PO SCH ×2 (10:32→17:46)
[2018-07-27] MEDS: Amoxicillin-Clav 875-125 mg Tab PO SCH ×2 (10:32→21:23)
[2018-07-27 18:13] VITALS: RESP 18
--- NOTE | 2018-07-27 18:27 | CP.PCM.PN ---
<Javy Barney - Last Filed: 07/27/18 19:23> Subjective - Date & Time of Evaluation Date of Evaluation: 07/27/18 Time of Evaluation: 13:10 - Subjective Subjective: PGY-1 Javy Barney Medicine Progress Note for Dr. Kelsey's Service Patient seen and examined at bedside. Patient offers no complaints. Patient states he cannot go home today due to being homeless and his group home closing at 6 pm. Patient denies chest pain, sob, kevin, orthopnea, palpitations, headaches, lightheadedness, dysuria, constipation or diarrhea. Objective - Vital Signs/Intake and Output Vital Signs (last 24 hours): Temp Pulse Resp BP Pulse Ox 97.8 F 68 18 103/74 98 07/27/18 18:00 07/27/18 18:00 07/27/18 18:00 07/27/18 18:00 07/27/18 06:00 Intake and Output: 07/27/18 07/27/18 06:59 18:59 Intake Total 1400 Output Total 6375 Balance -4975 - Medications Medications: Current Medications Amoxicillin/Clavulanate Potassium (Augmentin 875 Mg-125 Mg Tab) 1 tab PO Q12 [facility] PRN Reason: Protocol Last Admin: 07/27/18 10:32 Dose: 1 tab Apixaban (Eliquis) 5 mg PO BID [facility] PRN Reason: Protocol Last Admin: 07/27/18 17:46 Dose: 5 mg Atorvastatin Calcium (Lipitor) 40 mg PO HS [facility] Last Admin: 07/26/18 22:18 Dose: 40 mg Carvedilol (Coreg) 12.5 mg PO BID [facility] Last Admin: 07/27/18 17:45 Dose: 12.5 mg Furosemide (Lasix) 40 mg PO DAILY [facility] Last Admin: 07/27/18 10:31 Dose: 40 mg Lisinopril (Zestril) 10 mg PO DAILY [facility] Last Admin: 07/27/18 10:30 Dose: 10 mg Magnesium Oxide (Mag-Ox) 400 mg PO BID [facility] Last Admin: 07/27/18 17:46 Dose: 400 mg Pantoprazole Sodium (Protonix Ec Tab) 40 mg PO 0600 [facility] Last Admin: 07/27/18 05:59 Dose: 40 mg Potassium Chloride (Klor-Con 10) 30 meq PO BID [facility] Last Admin: 07/27/18 17:45 Dose: 30 meq Spironolactone (Aldactone) 25 mg PO BID [facility] Last Admin: 07/27/18 17:46 Dose: 25 mg - Labs Labs: 07/27/18 06:30 07/27/18 06:30 PT 17.3 SECONDS (9.4-12.5) H 07/21/18 07:50 INR 1.49 07/21/18 07:50 APTT 30.5 Seconds (25.1-36.5) 07/21/18 07:50 - Constitutional Appears: Non-toxic, No Acute Distress - Head Exam Head Exam: NORMAL INSPECTION, NORMOCEPHALIC - Eye Exam Eye Exam: EOMI, Normal appearance. absent: Nystagmus, Scleral icterus - ENT Exam ENT Exam: Mucous Membranes Moist - Respiratory Exam Respiratory Exam: Clear to Ausculation Bilateral, NORMAL BREATHING PATTERN. absent: Rales, Rhonchi, Wheezes - Cardiovascular Exam Cardiovascular Exam: REGULAR RHYTHM, +S1, +S2 - GI/Abdominal Exam GI & Abdominal Exam: Soft, Normal Bowel Sounds. absent: Tenderness - Extremities Exam Extremities Exam: Normal Inspection. absent: Calf Tenderness - Neurological Exam Neurological Exam: Alert, Awake, Oriented x3 - Psychiatric Exam Psychiatric exam: Normal Affect, Normal Mood - Skin Skin Exam: Intact, Normal Color Assessment and Plan - Assessment and Plan (Free Text) Assessment: 62 year old male with PMH of CAD s/p stents palced, CABG, A-Fib on Eliquis and Systolic CHF presented to ED for SOB and progressive LE edema x4 days. Admitted to for observation and CHF exacerbation Plan: Acute Exacerbation of CHF Echo: EF 17.7%, PHTN, global LV hypokinesis, severely reduced RV systolic function BNP 2320 on admission Lasix 40mg po daily flaco Zestril 10mg po daily Aldactone 25mg po bid 1200 fluid intake restriction Lower Extremity Wound 2/2 chronic venous stasis Augmentin 87/-125 1 tab po q12 scch CAD Lipitor 10mg po daily flaco Hx of Afib Coreg 12.5mg po bid Eliquis 5mg po bid Preauricular cystic mass chronic, for years no signs of infection, drainage, erythema followed [place] [facility] [place] PPx GI ppx: Protonix DVTppx: Eliquis Medical Management discussed with Dr. Kelsey <Kevyn Kelsey - Last Filed: 07/28/18 06:56> Objective - Vital Signs/Intake and Output Vital Signs (last 24 hours): Temp Pulse Resp BP Pulse Ox 97.3 F L 63 18 101/72 97 07/28/18 06:00 07/28/18 06:00 07/28/18 06:00 07/28/18 06:00 07/28/18 06:00 Intake and Output: 07/27/18 07/28/18 18:59 06:59 Intake Total 420 30 Output Total 2375 900 Balance -1955 -870 - Medications Medications: Current Medications Amoxicillin/Clavulanate Potassium (Augmentin 875 Mg-125 Mg Tab) 1 tab PO Q12 [facility]; Protocol Last Admin: 07/27/18 21:23 Dose: 1 tab Apixaban (Eliquis) 5 mg PO BID [facility]; Protocol Last Admin: 07/27/18 17:46 Dose: 5 mg Atorvastatin Calcium (Lipitor) 40 mg PO HS [facility] Last Admin: 07/27/18 21:23 Dose: 40 mg Carvedilol (Coreg) 12.5 mg PO BID [facility] Last Admin: 07/27/18 17:45 Dose: 12.5 mg Furosemide (Lasix) 40 mg PO DAILY [facility] Last Admin: 07/27/18 10:31 Dose: 40 mg Lisinopril (Zestril) 10 mg PO DAILY [facility] Last Admin: 07/27/18 10:30 Dose: 10 mg Magnesium Oxide (Mag-Ox) 400 mg PO BID [facility] Last Admin: 07/27/18 17:46 Dose: 400 mg Pantoprazole Sodium (Protonix Ec Tab) 40 mg PO 0600 [facility] Last Admin: 07/28/18 06:02 Dose: 40 mg Potassium Chloride (Klor-Con 10) 30 meq PO BID [facility] Last Admin: 07/27/18 17:45 Dose: 30 meq Spironolactone (Aldactone) 25 mg PO BID [facility] Last Admin: 07/27/18 17:46 Dose: 25 mg - Labs Labs: 07/27/18 06:30 07/27/18 06:30 PT 17.3 SECONDS (9.4-12.5) H 07/21/18 07:50 INR 1.49 07/21/18 07:50 APTT 30.5 Seconds (25.1-36.5) 07/21/18 07:50 Attending/Attestation - Attestation I have personally seen and examined this patient.: Yes I have fully participated in the care of the patient.: Yes I have reviewed all pertinent clinical information, including history, physical exam and plan: Yes Notes (Text): 07/27/18 62 year old homeless male with past medical history of CAD (unclear is stents), systolic CHF s/p AICD, afib on eliquis annd history of noncompliance who presented with acute on chronic CHF exacerbation and bilateral leg cellulitis. Symptoms are improving and cardiology switched lasix to po. Lisinopril dose decreased due to low normal blood pressure. Patient has few beats of vtach; electrolytes WNL and patient was asymptomatic. Case was discussed with Dr. Jordan. He is on po antibiotics. Overall patient has been improving over the past few days. D/c planning tomorrow AM (states it is too late for him to leave tonight). Kevyn Kelsey MD Hospitalist.
--- NOTE | 2018-07-27 18:28 | CP.PCM.DIS ---
Provider - Provider Date of Admission: 07/21/18 09:14 Attending physician: Kevyn Kelsey MD Hospital Course - Lab Results Lab Results: Micro Results 07/21/18 10:07 Leg - Right Gram Stain - Final 07/21/18 10:07 Leg - Right Wound Culture - Final Enterobacter Cloacae Ssp Cloac Most Recent Lab Values WBC 5.1 10^3/ul (4.5-11.0) 07/27/18 06:30 RBC 5.32 10^6/uL (3.5-6.1) 07/27/18 06:30 Hgb 14.6 g/dL (14.0-18.0) 07/27/18 06:30 Hct 46.6 % (42.0-52.0) 07/27/18 06:30 MCV 87.6 fl (80.0-105.0) 07/27/18 06:30 MCH 27.4 pg (25.0-35.0) 07/27/18 06:30 MCHC 31.3 g/dl (31.0-37.0) 07/27/18 06:30 RDW 16.7 % (11.5-14.5) H 07/27/18 06:30 Plt Count 149 10^3/uL (120.0-450.0) 07/27/18 06:30 MPV 10.6 fl (7.0-11.0) 07/27/18 06:30 Gran % 61.5 % (50.0-68.0) 07/27/18 06:30 Lymph % (Auto) 23.3 % (22.0-35.0) 07/27/18 06:30 [place] % (Auto) 12.3 % (1.0-6.0) H 07/27/18 06:30 Eos % (Auto) 2.3 % (1.5-5.0) 07/27/18 06:30 Baso % (Auto) 0.6 % (0.0-3.0) 07/27/18 06:30 Gran # 3.14 (1.4-6.5) 07/27/18 06:30 Lymph # (Auto) 1.2 (1.2-3.4) 07/27/18 06:30 [place] # (Auto) 0.6 (0.1-0.6) 07/27/18 06:30 Eos # (Auto) 0.1 (0.0-0.7) 07/27/18 06:30 Baso # (Auto) 0.03 K/mm3 (0.0-2.0) 07/27/18 06:30 PT 17.3 SECONDS (9.4-12.5) H 07/21/18 07:50 INR 1.49 07/21/18 07:50 APTT 30.5 Seconds (25.1-36.5) 07/21/18 07:50 Sodium 138 mmol/L (132-148) 07/27/18 06:30 Potassium 4.0 mmol/L (3.6-5.0) 07/27/18 06:30 Chloride 97 mmol/L (98-107) L 07/27/18 06:30 Carbon Dioxide 35 mmol/L (21-33) H 07/27/18 06:30 Anion Gap 11 (10-20) 07/27/18 06:30 BUN 18 mg/dL (7-21) 07/27/18 06:30 Creatinine 0.8 mg/dl (0.8-1.5) 07/27/18 06:30 Est GFR ( Amer) > 60 07/27/18 06:30 Est GFR (Non-Af Amer) > 60 07/27/18 06:30 Random Glucose 82 mg/dL (70-110) 07/27/18 06:30 Hemoglobin A1c 6.2 % (4.2-6.5) 07/22/18 06:45 Calcium 8.8 mg/dL (8.4-10.5) 07/27/18 06:30 Phosphorus 3.4 mg/dL (2.5-4.5) 07/27/18 06:30 Magnesium 2.1 mg/dL (1.7-2.2) 07/27/18 06:30 Total Bilirubin 1.8 mg/dL (0.2-1.3) H 07/27/18 06:30 AST 49 U/L (17-59) 07/27/18 06:30 ALT 39 U/L (7-56) 07/27/18 06:30 Alkaline Phosphatase 226 U/L (38-126) H 07/27/18 06:30 Troponin I 0.03 ng/mL 07/21/18 21:32 NT-Pro-B Natriuret Pep 2320 pg/mL (0-450) H 07/24/18 06:30 Total Protein 6.3 g/dL (5.8-8.3) 07/27/18 06:30 Albumin 3.2 g/dL (3.0-4.8) 07/27/18 06:30 Globulin 3.2 gm/dL 07/27/18 06:30 Albumin/Globulin Ratio 1.0 (1.1-1.8) L 07/27/18 06:30 Triglycerides 59 mg/dL (35-160) 07/22/18 06:45 Cholesterol 104 mg/dL (130-200) L 07/22/18 06:45 LDL Cholesterol Direct 66 mg/dL (0-129) 07/22/18 06:45 HDL Cholesterol 23 mg/dL (29-60) L 07/22/18 06:45 TSH 3rd Generation 0.91 mIU/mL (0.46-4.68) 07/22/18 06:45 Discharge Exam - Head Exam Head Exam: ATRAUMATIC, NORMAL INSPECTION, NORMOCEPHALIC Discharge Plan - Discharge Medications Prescriptions: Amoxicillin/Clavulanate [Augmentin 875 MG-125 MG Tab] 1 tab PO Q12 #8 tab Apixaban [Eliquis] 5 mg PO BID #60 tab Furosemide [Lasix] 40 mg PO DAILY #60 tab Lisinopril [Zestril] 5 mg PO DAILY #30 tablet - Follow Up Plan Condition: GUARDED Disposition: HOME/ ROUTINE Additional Instructions: 1.Please follow up with your PMD within 3-5 days. 2.Please be sure to ambulate while home. 3.Continue to elevate scrotum to help with swelling, as well as continue with fluid restriction, measuring daily weights, and Input and Output 4.Please follow up with cardiology within 1 week. 5.You will be given prescriptions for lasix and augmentin. Please continue with your eliquis, lipitor aldactone, and plavix. Do not take aspirin. Please do not continue the lisinopril 10mg. Please take the lisinopril 5mg by mouth once daily. Follow up with your primary medical doctor for ambulatory blood pressure measurements. 6.If symptoms worsen or return please go to your nearest emergency department.
[2018-07-28] MEDS: Pantoprazole 40 mg EC Tab PO SCH (06:02)
[2018-07-28 06:06] VITALS: O2SAT 97
[2018-07-28 07:39] LABS: BASO # 0.04 K/mm3 (0.0-2.0); BASO % 0.7 % (0.0-3.0); EOS # 0.2 (0.0-0.7); EOS % 2.8 % (1.5-5.0); GRAN # 3.47 (1.4-6.5); GRAN % 60.3 % (50.0-68.0); HEMOGLOBIN 14.1 g/dL (14.0-18.0); LYMPH # 1.3 (1.2-3.4); LYMPH % 22.6 % (22.0-35.0); MEAN CORPUSCULAR HEMOGLOBIN 27.3 pg (25.0-35.0); MEAN CORPUSCULAR HGB CONC 31.1 g/dl (31.0-37.0); MEAN PLATELET VOLUME 10.8 fl (7.0-11.0); MONO # 0.8 (0.1-0.6); MONO % 13.6 % (1.0-6.0); RBC 5.16 10^6/uL (3.5-6.1); RED CELL DISTRIBUTION WIDTH 16.7 % (11.5-14.5); WHITE BLOOD COUNT 5.8 10^3/ul (4.5-11.0)
[2018-07-28 08:03] LABS: ALB/GLOB RATIO 1.1 (1.1-1.8); ALT/SGPT 36 U/L (7-56); AST/SGOT 45 U/L (17-59); BLOOD UREA NITROGEN 16 mg/dL (7-21); CALCIUM 8.9 mg/dL (8.4-10.5); GFR NON-AFRICAN AMERICAN > 60
[2018-07-28] MEDS: Amoxicillin-Clav 875-125 mg Tab PO SCH (10:00)
[2018-07-28] MEDS: Potassium Chloride 10 mEq ER Tab PO SCH (10:00)
[2018-07-28] MEDS: Magnesium Oxide 400 mg Tab UD PO SCH (10:00)
[2018-07-28 12:05] VITALS: BP 95/63; PULSE 55; TEMP 97.7
--- NOTE | 2018-07-28 16:36 | CP.PCM.DIS ---
<Javy Barney - Last Filed: 07/28/18 16:22> Provider - Provider Date of Admission: 07/21/18 09:14 Attending physician: Kevyn Kelsey MD Consults: Dr. Andrew Jordan Time Spent in preparation of Discharge (in minutes): 45 Hospital Course - Lab Results Lab Results: Micro Results 07/21/18 08:15 Blood-Venous Blood Culture - Final NO GROWTH AFTER 5 DAYS 07/21/18 08:15 Blood-Venous Gram Stain - Final TEST NOT PERFORMED 07/21/18 08:30 Blood-Venous Blood Culture - Final NO GROWTH AFTER 5 DAYS 07/21/18 08:30 Blood-Venous Gram Stain - Final TEST NOT PERFORMED 07/21/18 10:07 Leg - Right Gram Stain - Final 07/21/18 10:07 Leg - Right Wound Culture - Final Enterobacter Cloacae Ssp Cloac Most Recent Lab Values WBC 5.8 10^3/ul (4.5-11.0) 07/28/18 07:00 RBC 5.16 10^6/uL (3.5-6.1) 07/28/18 07:00 Hgb 14.1 g/dL (14.0-18.0) 07/28/18 07:00 Hct 45.4 % (42.0-52.0) 07/28/18 07:00 MCV 88.0 fl (80.0-105.0) 07/28/18 07:00 MCH 27.3 pg (25.0-35.0) 07/28/18 07:00 MCHC 31.1 g/dl (31.0-37.0) 07/28/18 07:00 RDW 16.7 % (11.5-14.5) H 07/28/18 07:00 Plt Count 150 10^3/uL (120.0-450.0) 07/28/18 07:00 MPV 10.8 fl (7.0-11.0) 07/28/18 07:00 Gran % 60.3 % (50.0-68.0) 07/28/18 07:00 Lymph % (Auto) 22.6 % (22.0-35.0) 07/28/18 07:00 [place] % (Auto) 13.6 % (1.0-6.0) H 07/28/18 07:00 Eos % (Auto) 2.8 % (1.5-5.0) 07/28/18 07:00 Baso % (Auto) 0.7 % (0.0-3.0) 07/28/18 07:00 Gran # 3.47 (1.4-6.5) 07/28/18 07:00 Lymph # (Auto) 1.3 (1.2-3.4) 07/28/18 07:00 [place] # (Auto) 0.8 (0.1-0.6) H 07/28/18 07:00 Eos # (Auto) 0.2 (0.0-0.7) 07/28/18 07:00 Baso # (Auto) 0.04 K/mm3 (0.0-2.0) 07/28/18 07:00 PT 17.3 SECONDS (9.4-12.5) H 07/21/18 07:50 INR 1.49 07/21/18 07:50 APTT 30.5 Seconds (25.1-36.5) 07/21/18 07:50 Sodium 139 mmol/L (132-148) 07/28/18 07:00 Potassium 4.8 mmol/L (3.6-5.0) 07/28/18 07:00 Chloride 99 mmol/L (98-107) 07/28/18 07:00 Carbon Dioxide 34 mmol/L (21-33) H 07/28/18 07:00 Anion Gap 10 (10-20) 07/28/18 07:00 BUN 16 mg/dL (7-21) 07/28/18 07:00 Creatinine 0.9 mg/dl (0.8-1.5) 07/28/18 07:00 Est GFR ( Amer) > 60 07/28/18 07:00 Est GFR (Non-Af Amer) > 60 07/28/18 07:00 Random Glucose 82 mg/dL (70-110) 07/28/18 07:00 Hemoglobin A1c 6.2 % (4.2-6.5) 07/22/18 06:45 Calcium 8.9 mg/dL (8.4-10.5) 07/28/18 07:00 Phosphorus 3.4 mg/dL (2.5-4.5) 07/27/18 06:30 Magnesium 2.1 mg/dL (1.7-2.2) 07/27/18 06:30 Total Bilirubin 2.0 mg/dL (0.2-1.3) H 07/28/18 07:00 AST 45 U/L (17-59) 07/28/18 07:00 ALT 36 U/L (7-56) 07/28/18 07:00 Alkaline Phosphatase 224 U/L (38-126) H 07/28/18 07:00 Troponin I 0.03 ng/mL 07/21/18 21:32 NT-Pro-B Natriuret Pep 2320 pg/mL (0-450) H 07/24/18 06:30 Total Protein 5.7 g/dL (5.8-8.3) L 07/28/18 07:00 Albumin 3.0 g/dL (3.0-4.8) 07/28/18 07:00 Globulin 2.7 gm/dL 07/28/18 07:00 Albumin/Globulin Ratio 1.1 (1.1-1.8) 07/28/18 07:00 Triglycerides 59 mg/dL (35-160) 07/22/18 06:45 Cholesterol 104 mg/dL (130-200) L 07/22/18 06:45 LDL Cholesterol Direct 66 mg/dL (0-129) 07/22/18 06:45 HDL Cholesterol 23 mg/dL (29-60) L 07/22/18 06:45 TSH 3rd Generation 0.91 mIU/mL (0.46-4.68) 07/22/18 06:45 - Hospital Course Hospital Course: Upon Admission 62 year old male with pertinent medical history of A-Fib on Eliquis and Systolic HF presents with 4 day history of shortness of breath. Patient was recently discharged from [facility] [place] [facility] for similar symptoms and generally goes there for medical treatment. He also complains of scrotal swelling as well as bilateral LE swelling. He denies any chest pain or fatigue, states that at his baseline he is able to walk around several blocks. He is homeless. Does not recall having a recent ECHO, but per [facility] [place] [place] records has been seen there multiple times. He states that he had an AICD placed in May but does not know why. Denies any urinary symptoms or any calf pain in bilateral LE. Hospital Course Patient is a 62 yo male admitted into hospital for evaluation of acute exacerbation of CHF. Labs showed elevated BNP with CXR showing b/l infiltrate or fluid. Patient was severely edematous including his scrotum and required Lasix 40mg IV bid for diuresis. Echo showed ejection fraction of 17%. Patient was continued on home CHF meds with increased diuresis using Lasix 40mg bid until symptoms improved. Patient's shortness of breath improved and leg/scrotum swelling decreased. Patient was dicharged with all home meds at decreased dose due to low blood pressure measurements. Discharge Plan Patient is stable for discharge to [facility] as per Dr. Kelsey. Patient is to follow up with primary medical doctor within 3-5 days of discharge for ambul atory blood pressure measurements. Patient should resume all medications as mentioned in discharge instructions. Patient should return to hospital if symptoms recur or worsen. Patient understands the plan as above and agrees. Disclaimer: Written above is a synopsis of patient current hospital admission. For full report please refer to EMR. Discharge Exam - Head Exam Head Exam: NORMAL INSPECTION, NORMOCEPHALIC Discharge Plan - Discharge Medications Prescriptions: Amoxicillin/Clavulanate [Augmentin 875 MG-125 MG Tab] 1 tab PO Q12 #8 tab Apixaban [Eliquis] 5 mg PO BID #60 tab Carvedilol [Coreg] 6.25 mg PO DAILY #30 tab Furosemide [Lasix] 40 mg PO DAILY #60 tab Lisinopril [Zestril] 5 mg PO DAILY #30 tab Spironolactone [Aldactone] 25 mg PO BID #60 tab - Follow Up Plan Condition: GUARDED Disposition: HOME/ ROUTINE Instructions: Heart Failure, Adult (DC), Low Salt Diet, Cellulitis (Skin Infection), Adult (DC), Exacerbation of COPD (DC) Additional Instructions: 1.Please follow up with your PMD within 3-5 days. 2.Please be sure to ambulate while home. 3.Continue to elevate scrotum to help with swelling, as well as continue with fluid restriction, measuring daily weights, and Input and Output 4.Please follow up with cardiology within 1 week. 5.You will be given prescriptions for carvedilo, lasix, lisinopril, eliquis, spironolactone, and augmentin. Do not take your home medications with the same name because the newly prescribed medications are a lower dose. Continue taking your home lipitor as no changes were made to this medication. Follow up with your primary medical doctor for ambulatory blood pressure measurements. 6.If symptoms worsen or return please go to your nearest emergency department. Referrals: Tanmay Jordan MD [Staff Provider] - Andrew Choi MD [Staff Provider] - <Kevyn Kelsey - Last Filed: 07/29/18 07:03> Provider - Provider Date of Admission: 07/21/18 09:14 Attending physician: Kevyn Kelsey MD Hospital Course - Lab Results Lab Results: Micro Results 07/21/18 08:15 Blood-Venous Blood Culture - Final NO GROWTH AFTER 5 DAYS 07/21/18 08:15 Blood-Venous Gram Stain - Final TEST NOT PERFORMED 07/21/18 08:30 Blood-Venous Blood Culture - Final NO GROWTH AFTER 5 DAYS 07/21/18 08:30 Blood-Venous Gram Stain - Final TEST NOT PERFORMED 07/21/18 10:07 Leg - Right Gram Stain - Final 07/21/18 10:07 Leg - Right Wound Culture - Final Enterobacter Cloacae Ssp Cloac Most Recent Lab Values WBC 5.8 10^3/ul (4.5-11.0) 07/28/18 07:00 RBC 5.16 10^6/uL (3.5-6.1) 07/28/18 07:00 Hgb 14.1 g/dL (14.0-18.0) 07/28/18 07:00 Hct 45.4 % (42.0-52.0) 07/28/18 07:00 MCV 88.0 fl (80.0-105.0) 07/28/18 07:00 MCH 27.3 pg (25.0-35.0) 07/28/18 07:00 MCHC 31.1 g/dl (31.0-37.0) 07/28/18 07:00 RDW 16.7 % (11.5-14.5) H 07/28/18 07:00 Plt Count 150 10^3/uL (120.0-450.0) 07/28/18 07:00 MPV 10.8 fl (7.0-11.0) 07/28/18 07:00 Gran % 60.3 % (50.0-68.0) 07/28/18 07:00 Lymph % (Auto) 22.6 % (22.0-35.0) 07/28/18 07:00 [place] % (Auto) 13.6 % (1.0-6.0) H 07/28/18 07:00 Eos % (Auto) 2.8 % (1.5-5.0) 07/28/18 07:00 Baso % (Auto) 0.7 % (0.0-3.0) 07/28/18 07:00 Gran # 3.47 (1.4-6.5) 07/28/18 07:00 Lymph # (Auto) 1.3 (1.2-3.4) 07/28/18 07:00 [place] # (Auto) 0.8 (0.1-0.6) H 07/28/18 07:00 Eos # (Auto) 0.2 (0.0-0.7) 07/28/18 07:00 Baso # (Auto) 0.04 K/mm3 (0.0-2.0) 07/28/18 07:00 PT 17.3 SECONDS (9.4-12.5) H 07/21/18 07:50 INR 1.49 07/21/18 07:50 APTT 30.5 Seconds (25.1-36.5) 07/21/18 07:50 Sodium 139 mmol/L (132-148) 07/28/18 07:00 Potassium 4.8 mmol/L (3.6-5.0) 07/28/18 07:00 Chloride 99 mmol/L (98-107) 07/28/18 07:00 Carbon Dioxide 34 mmol/L (21-33) H 07/28/18 07:00 Anion Gap 10 (10-20) 07/28/18 07:00 BUN 16 mg/dL (7-21) 07/28/18 07:00 Creatinine 0.9 mg/dl (0.8-1.5) 07/28/18 07:00 Est GFR ( Amer) > 60 07/28/18 07:00 Est GFR (Non-Af Amer) > 60 07/28/18 07:00 Random Glucose 82 mg/dL (70-110) 07/28/18 07:00 Hemoglobin A1c 6.2 % (4.2-6.5) 07/22/18 06:45 Calcium 8.9 mg/dL (8.4-10.5) 07/28/18 07:00 Phosphorus 3.4 mg/dL (2.5-4.5) 07/27/18 06:30 Magnesium 2.1 mg/dL (1.7-2.2) 07/27/18 06:30 Total Bilirubin 2.0 mg/dL (0.2-1.3) H 07/28/18 07:00 AST 45 U/L (17-59) 07/28/18 07:00 ALT 36 U/L (7-56) 07/28/18 07:00 Alkaline Phosphatase 224 U/L (38-126) H 07/28/18 07:00 Troponin I 0.03 ng/mL 07/21/18 21:32 NT-Pro-B Natriuret Pep 2320 pg/mL (0-450) H 07/24/18 06:30 Total Protein 5.7 g/dL (5.8-8.3) L 07/28/18 07:00 Albumin 3.0 g/dL (3.0-4.8) 07/28/18 07:00 Globulin 2.7 gm/dL 07/28/18 07:00 Albumin/Globulin Ratio 1.1 (1.1-1.8) 07/28/18 07:00 Triglycerides 59 mg/dL (35-160) 07/22/18 06:45 Cholesterol 104 mg/dL (130-200) L 07/22/18 06:45 LDL Cholesterol Direct 66 mg/dL (0-129) 07/22/18 06:45 HDL Cholesterol 23 mg/dL (29-60) L 07/22/18 06:45 TSH 3rd Generation 0.91 mIU/mL (0.46-4.68) 07/22/18 06:45 Discharge Exam - Head Exam Head Exam: NORMAL INSPECTION - Eye Exam Eye Exam: EOMI - Neck Exam Neck exam: Full Rom - Respiratory Exam Respiratory Exam: Clear to PA & Lateral. absent: Rales, Rhonchi, Wheezes - Cardiovascular Exam Cardiovascular Exam: REGULAR RHYTHM, +S1, +S2 - GI/Abdominal Exam GI & Abdominal Exam: Normal Bowel Sounds, Soft. absent: Guarding, Organomegaly, Tenderness - Extremities Exam Additional comments: LE erythema/swelling improved; chronic skin changes - Neurological Exam Neurological exam: Alert, Altered Discharge Plan - Follow Up Plan Patient education suggested?: Yes Attending/Attestation - Attestation I have personally seen and examined this patient.: Yes I have fully participated in the care of the patient.: Yes I have reviewed all pertinent clinical information, including history, physical exam and plan: Yes Notes (Text): 07/28/18 62 year old homeless male with past medical history of CAD, systolic CHF s/p AICD, afib on eliquis annd history of noncompliance who presented with acute on chronic CHF exacerbation and bilateral leg cellulitis. He was started on iv lasix and antibiotics with improvement of symptoms. He states he had recent AICD and not stents and his aspirin and plavix were held per cardiology. His BP medications were all decreased to lower dosed due to low normal blood pressure. Patient is discharged today on po antibiotics and po lasix. BP medications were adjusted as above. Follow up with pmd and heat seal operator in [place] within 3-5 days. Counselled on medication compliance and outpatient follow up. Kevyn Kelsey MD Hospitalist.
== END 2018-07-28 16:17 | disposition home or self-care (01) | DRG 127 ==
LOC: ED 07:10 → ERH 09:14 → 2RSO 12:31
PROVIDERS: ADMIT Internal Medicine; ATTEND Internal Medicine
DX: I11.0 Hypertensive heart disease with heart failure (principal); I47.2 Ventricular tachycardia; I42.0 Dilated cardiomyopathy; L03.116 Cellulitis of left lower limb; L03.115 Cellulitis of right lower limb; I50.23 Acute on chronic systolic (congestive) heart failure; I48.2 Chronic atrial fibrillation; I25.10 Atherosclerotic heart disease of native coronary artery without angina pectoris; K21.9 Gastro-esophageal reflux disease without esophagitis; E66.01 Morbid (severe) obesity due to excess calories; E78.00 Pure hypercholesterolemia, unspecified; F17.200 Nicotine dependence, unspecified, uncomplicated; N50.89 Other specified disorders of the male genital organs; Z59.0 Homelessness; Z79.01 Long term (current) use of anticoagulants; Z79.899 Other long term (current) drug therapy; Z87.01 Personal history of pneumonia (recurrent); Z91.14 Patient's other noncompliance with medication regimen; Z95.1 Presence of aortocoronary bypass graft; Z95.5 Presence of coronary angioplasty implant and graft; Z95.810 Presence of automatic (implantable) cardiac defibrillator; R40.2412 Glasgow coma scale score 13-15, at arrival to emergency department